=== PATIENT | female | born 1965 | race Caucasian/White ===

== ENCOUNTER 2020-06-03 11:01 | Emergency (ER) | payer OTHER, SELFPAY ==
--- NOTE | ~2020-06-03 | XR_ITS ---
EXAMINATION: XR lumbar spine min 4V DATE: 06/03/2020 12:55 INDICATION: Low back pain TECHNIQUE: Anteroposterior, lateral, and bilateral oblique views of the lumbar spine, and cone-down l ateral view of the lumbosacral junction were obtained. COMPARISON: None. FINDINGS: There is no fracture. There are 2 mm of retrolisthesis of L4 on L5 and L5 on L6. There is m oderate loss of intervertebral disc space height at L4-5 and L5 six and mild loss of intervertebral d isc space height throughout the remainder of the lumbar spine. The vertebral body heights are normal. Small degenerative osteophytes project from the anterior endplates of multiple vertebral bodies. Mil d facet osteoarthritis is noted. The bowel gas pattern is normal. IMPRESSION: 1. Mild to moderate lumbar spondylosis without acute findings. Reviewed, dictated and finalized at location A. HAND
[2020-06-03 11:08] VITALS: BP 127/79; PULSE 79; RESP 16; TEMP 36.5; O2SAT 97
[2020-06-03 11:30] VITALS: BP 118/68; PULSE 72; RESP 16; TEMP 36.6; O2SAT 99
--- NOTE | 2020-06-03 11:40 | PC.NURSE ---
KATELYN White at bedside.
[2020-06-03] MEDS: KETOROLAC 30 MG/ML VIAL (*BKC) IM (12:06)
--- NOTE | 2020-06-03 12:16 | ED.GENADULT ---
HPI - General Adult General Chief complaint: Back Pain/Injury Stated complaint: back pain, numbness to foot Time Seen by Provider: 06/03/20 11:22 Source: patient Mode of arrival: ambulatory Limitations: no limitations History of Present Illness HPI narrative: Patient presents with chief complaint of right-sided back pain that has shot down into her right buttock and ankle that woke her up out of her sleep yesterday morning. Patient denies any direct injury or exertional efforts that she believes could cause her symptoms. Patient denies history of having sciatic issues in the past. Patient was seen at urgent care yesterday and diagnosed with sciatic issues. Patient states she has not had any imaging. Patient was prescribed prednisone, Tylenol 3 and cyclobenzaprine at the urgent care on yesterday. She reports some improvement in mobility but still has pain and was told to come to the emergency department if her symptoms worsen by the urgent care staff yesterday. Patient reports having autoimmune issue. Patient denies any prior back injuries or fractures or chronic medical conditions.. Related Data Home Medications Medication Instructions Recorded Confirmed levothyroxine 75 mcg tablet 75 mcg PO DAILY 04/21/19 04/21/19 adalimumab 40 mg/0.8 mL 40 mg SUB-Q WEEKLY each 08/16/19 subcutaneous pen kit immune glob,gamma(IgG) 10 10 gm IVPB WEEKLY each 08/16/19 [id number] 0 to 50 mcg/mL IV solution leflunomide 20 mg tablet 20 mg PO DAILY 08/16/19 progesterone micronized 100 mg 100 mg PO DAILY cap 08/16/19 capsule cholecalciferol (vitamin D3) 125 mcg PO DAILY 06/03/20 [Vitamin D3] Allergies Allergy/AdvReac Type Severity Reaction Status Date / Time meperidine [From Demerol] Allergy Unknown Unknown Verified 08/16/19 10:41 MEPERIDINE HCL Allergy Mild Unknown Uncoded 04/24/19 15:17 OXYCODONE HCL Allergy Mild Unknown Uncoded 04/24/19 15:17 Review of Systems Review of Systems: Narrative: CONSTITUTIONAL: Denies fever, chills, or sweats. EYES: Denies visual changes, redness, or discharge. ENT: Denies rhinorrhea, congestion, sore throat, or otalgia. CARDIOVASCULAR: Denies chest pain, palpitations, or edema. RESPIRATORY: Denies cough or dyspnea. GASTROINTESTINAL: Denies abdominal pain, nausea, vomiting, or diarrhea. GENITOURINARY: Denies dysuria or hematuria. SKIN: Denies rash or itching. MUSCULOSKELETAL: Reports radiating right low back pain , joint pain, or myalgia. NEUROLOGIC: Denies headache, numbness, dizziness, or weakness. PSYCHIATRIC: Denies anxiety or depression. FOR[facility]LY [facility] Past Medical History Medical History (Updated 06/03/20 @ 13:01 by Bernie White PA-C) Anxiety Asthma Depression Hypertension Hypothyroidism Irritable bowel syndrome Social History Social History Gender identity (if verbalized by the patient): Female Exam Narrative: Exam Narrative: GENERAL: Well-appearing, well-nourished, and in no acute distress. HEAD: Normocephalic, atraumatic. EYES: PERRLA and EOMI. ENT: Nares clear, no rhinorrhea or epistaxis. Mucous membranes moist. Oropharynx without tonsillar hypertrophy exudate or other lesions. Bilateral TMs pearly power nonbulging NECK: Supple. No adenopathy or masses. CHEST: Clear to auscultation. No respiratory distress. No wheezes rales or rhonchi HEART: Regular rate and rhythm. No murmur heard. Normal peripheral pulses. BACK: Patient able to stand and bear weight. Patient minimally tender with palpation of right glutes. No bony step-offs palpated on vertebral spine. No saddle paresthesia. No loss of bowel or bladder function. EXTREMITIES: Normal range of motion. No edema. SKIN: Warm, dry, no rash. NEURO: No focal deficits. Alert and oriented x3. PSYCH: Normal mood and affect. Course Vital Signs Vital signs: Vital Signs Temperature 97.7 F 06/03/20 11:08 Pulse Rate 79 06/03/20 11:08 Respiratory Rate
[2020-06-03 14:00] VITALS: BP 132/78; PULSE 68; RESP 16; O2SAT 100
== END 2020-06-03 14:01 | disposition home or self-care (01) ==
PROVIDERS: Emergency Provider Emergency Medicine; PCP Family Medicine
DX: M54.31 Sciatica, right side (principal); F41.9 Anxiety disorder, unspecified; J45.909 Unspecified asthma, uncomplicated; F32.9 Major depressive disorder, single episode, unspecified; I10 Essential (primary) hypertension; E03.9 Hypothyroidism, unspecified
CPT/HCPCS: 72110; 96372; 99283; J1885

== ENCOUNTER → 2020-06-12 15:47 | Outpatient (CLI) | payer OTHER, SELFPAY ==
--- NOTE | ~2020-06-12 | MR_ITS ---
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 Low back and right leg pain. TECHNIQUE: Multi-sequential, multiplanar MR images of the lumbar spine were obtained without contrast . Sagittal T1, T2, T2 fat saturation images. Axial T2 weighted images. Correlation is made to x-ray from 06/03/2020. FINDINGS: There is moderate loss of the L5-S1 disc height, mild to moderate at L4-5 and mild loss at the 2 levels above. There is 3 mm retrolisthesis L4 on L5. The vertebral bodies are otherwise aligned . The conus medullaris terminates at the L1/2 level and has normal signal intensity and morphology. There are no suspicious marrow signal abnormalities. Paraspinal soft tissue is unremarkable. Level by level evaluation: T12-L1: There is a minimal diffuse disc bulge. Facet arthropathy: Mild. Neural foraminal stenosis: No stenosis. Central canal stenosis: No stenosis. L1-L2: There is a minimal diffuse disc bulge. Facet arthropathy: Mild. Neural foraminal stenosis: No stenosis. Central canal stenosis: No stenosis. L2-L3: There is a moderate diffuse disc bulge. Facet arthropathy: Mild to moderate. Neural foraminal stenosis: Mild bilateral. Central canal stenosis: Mild. L3-L4: There is a moderate diffuse disc bulge. Facet arthropathy: Mild to moderate. Neural foraminal stenosis: Moderate left, mild to moderate right. Central canal stenosis: Mild to moderate. L4-L5: There is a moderate diffuse disc bulge with superimposed moderate-sized right central extrusio n, inferior migration narrowing the right lateral recess posterior to L5. Facet arthropathy: Moderate . Ligamentum flavum enlargement. Neural foraminal stenosis: Severe right, moderate to severe left. Central canal stenosis: Moderate to severe, nerve root crowding with minimal CSF space. L5-S1: There is a moderate diffuse disc bulge. Facet arthropathy: Mild to moderate. Neural foraminal stenosis: Moderate to severe left, moderate right. Central canal stenosis: Mild to moderate. IMPRESSION: L4-5 moderate to severe central canal stenosis, severe right neural foraminal stenosis, a nd sizable right central extrusion that could be affecting the traversing right L5 nerve root in the lateral recess. Reviewed, dictated and finalized at location A. IMPRESSION: L4-5 moderate to severe central canal stenosis, severe right neural foraminal stenosis, and sizable right central extrusion that could be affectin g the traversing right L5 nerve root in the lateral recess.
== END ==
PROVIDERS: PCP Family Medicine; Visit Provider Physician Assistant
DX: M43.06 Spondylolysis, lumbar region (principal); M51.24 Other intervertebral disc displacement, thoracic region
CPT/HCPCS: 72148

== ENCOUNTER 2020-09-09 12:36 | Outpatient (CLI) | payer OTHER, SELFPAY ==
--- NOTE | 2020-09-09 12:59 | ECG_ITS ---
Measurements Intervals [place] Rate: 78 P: 45 HI: 161 QRS: 0 QRSD: 82 T: 16 QT: 344 QTc: 394 Interpretive Statements SINUS RHYTHM NONSPECIFIC T-WAVE ABNORMALITY- ANT/INF LEADS BORDERLINE ECG Electronically Signed On 09-09-2020 13:13:24 CDT by Berhane Winkler D.O.
[2020-09-09 13:10] LABS: Basophils Absolute Auto 0.1 K/mm3 (0.0-0.1); Basophils Percent Auto 1.1 % (0.2-1.2); Eosinophils Absolute Auto 0.3 K/mm3 (0-0.3); Eosinophils Percent Auto 4.8 % (0-4.4); Hematocrit 41.9 % (37.0-47.0); Hemoglobin 13.5 g/dL (12.0-15.0); Immature Granulocyte Absolute 0.03 K/mm3 (0.00-0.031); Immature Granulocyte Percent A 0.5 % (0-0.5); Lymphocytes Absolute Auto 2.21 K/mm3 (0.9-3.2); Lymphocytes Percent Auto 35.6 % (18.3-44.2); Mean Corpuscular HGB Conc 32.2 g/dl (32-36); Mean Corpuscular Hemoglobin 28.8 pg (26-34); Mean Corpuscular Volume 89.3 fl (80-100); Monocytes Absolute Auto 0.7 K/mm3 (0.1-0.6); Monocytes Percent Auto 10.6 % (2.6-8.5); Neutrophils Absolute Auto 2.9 K/mm3 (1.3-6.7); Neutrophils Percent Auto 47.4 % (45.5-73.1); Platelet Count Result 226 k/mm3 (150-375); Red Blood Count 4.69 M/mm3 (4.2-5.4); Red Cell Distribution Width 13.7 % (11.5-14.5); White Blood Count 6.2 K/mm3 (4.5-10.0)
[2020-09-09 13:13] LABS: Add Urine Microscopic? YES; Appearance Urine Clear (Clear); Bilirubin Urine Negative (Negative); Blood Urine Negative (Negative); Color Urine Yellow (Yellow); Glucose Urine UA Negative (Negative); Ketones Urine Negative (Negative); Leukocyte Esterase Ur Trace LEU/UL (NEGATIVE); Mucus Urine Rare /lpf; Nitrate Urine Negative (Negative); Protein Urine Negative (Negative); RBC Urine 0-2 /hpf (0-2); Specific Grav Ur 1.016 (1.001-1.035); Squamous Epithelial Cell Urine Many /hpf (Few); Urobilinogen Urine Negative mg/dL (<2.0); WBC Urine 0-3 /hpf (0-3)
[2020-09-09 13:25] LABS: Anion Gap 4 mmol/L (8-16); Blood Urea Nitrogen 12 mg/dL (7-17); Calcium 9.1 mg/dL (8.4-10.2); Carbon Dioxide 28 mmol/L (22-30); Chloride 108 mmol/L (98-107); Estimated Glomerular Filt Rate > 60; Glucose 102 mg/dL (65-105); Potassium 3.7 mmol/L (3.4-5.0); Sodium 140 mmol/L (137-145)
[2020-09-09 13:30] LABS: INR 0.9
[2020-09-09 13:31] LABS: Partial Thromboplastin Time 25.5 SECONDS (22.3-36.8)
[2020-09-09 14:27] LABS: Vitamin D 25 Hydroxy 49.7 ng/mL
== END 2020-09-09 12:37 | disposition home or self-care (01) ==
PROVIDERS: PCP Family Medicine; Visit Provider Family Medicine
DX: R53.83 Other fatigue (principal); E55.9 Vitamin D deficiency, unspecified; I10 Essential (primary) hypertension; Z01.818 Encounter for other preprocedural examination
CPT/HCPCS: 36415; 80048; 81001; 82306; 85025; 85610; 85730; 93005

== ENCOUNTER 2023-08-07 15:56 | Emergency (ER) | payer OTHER, SELFPAY ==
--- NOTE | ~2023-08-07 | CT_ITS ---
EXAMINATION: CT brain wo con DATE: 08/07/2023 17:49 INDICATION: trauma . TECHNIQUE: Computed tomography (CT) of the head was performed without intravenous contrast. The mA wa s adjusted according to patient size. Iterative reconstruction technique was employed. The dose-lengt h product was 605.33 mGy-cm. COMPARISON: 05/18/2006. FINDINGS: No acute intracranial hemorrhage or extra-axial fluid collection. No hydrocephalus, mass, or herniation. No acute ischemic infarct. Unremarkable dural venous sinus attenuation. No acute osseous abnormality. The aerated spaces are clear. Bilateral basal ganglia calcification. IMPRESSION: No acute intracranial process. Reviewed, dictated and finalized at location K.
[2023-08-07 16:05] VITALS: BP 111/72; PULSE 67; RESP 18; TEMP 36.9; O2SAT 99
--- NOTE | 2023-08-07 18:07 | ED.GENADULT ---
HPI - General Adult General Chief complaint: Fall Stated complaint: from urgent care- fell down 15 stairs Time Seen by Provider: 08/07/23 17:29 History of Present Illness HPI narrative: Patient is a 58-year-old female who presents ER for evaluation after falling down 15 stairs. She did strike her head. She reports she has a massive headache. She has a little bit of wearing to her vision. After falling down the stairs she went to urgent care and then urgent care wanted her to come here so she went to work. Patient did not want to leave against medical advice. She does report that her has picked up her medications that were prescribed to her. She has mild nausea. She has had a concussion before and feels like she has the same thing. Related Data Home Medications Medication Instructions Recorded Confirmed immune glob,gamma(IgG) 10 10 gm IV WEEKLY 08/16/19 07/26/23 [id number] 0 to 50 mcg/mL IV solution cholecalciferol (vitamin D3) 125 125 mcg PO DAILY 06/03/20 07/26/23 mcg (5,000 unit) tablet (Vitamin D3) Allergies Allergy/AdvReac Type Severity Reaction Status Date / Time meperidine Allergy Unknown Itching Verified 03/06/23 16:23 MEPERIDINE HCL Allergy Mild Unknown Uncoded 03/06/23 16:23 OXYCODONE HCL Allergy Mild Unknown Uncoded 03/06/23 16:23 Review of Systems Review of Systems: All systems reviewed & are unremarkable except as noted in HPI and below Constitutional: Constitutional: Reports no additional constitutional complaints Eyes: Eyes: Reports no additional eye complaints ENT: Reports system reviewed and no additional complaints, except as documented Cardiovascular: Cardiovascular: Reports no additional cardiovascular complaints Respiratory: Respiratory: Reports no additional respiratory complaints Neurologic: Denies syncope, Reports headache(s), Denies focal weakness and Denies numbness PMF Past Medical History Medical History Anxiety Asthma Depression Disorder of intervertebral disc of lumbar spine Hypertension Hypothyroidism Irritable bowel syndrome Spinal stenosis Surgical History Surgical History H/O lumpectomy History of back surgery Family History Family History Father Hypertension Mother Hypertension Other Diabetes mellitus Family history of arthritis Social History Social History Smoking status: Never smoker Second hand tobacco smoke exposure: No Alcohol intake: never Substance use: never Substance use type: does not use Lack of Transportation: No Lack of Food: Never True Current Housing: I Have Housing Concerned About Future Housing: No Difficulty Paying Gas/Electric Bills: No Difficulty Paying for Meds: No Currently Unemployed: No Education: Bachelor's Degree Difficulty w/ Childcare or Family Care: No Living arrangements: with family Gender identity (if verbalized by the patient): Female Sexual Orientation (if Verbalized by the Patient): Straight or Heterosexual Spiritual care concerns: No Agree to blood products: Yes Exam Narrative: GENERAL: Well-appearing, well-nourished, and in no acute distress. HEAD: Normocephalic, atraumatic. EYES: PERRLA and EOMI. ENT: Mucous membranes moist. CHEST: Clear to auscultation. No respiratory distress. HEART: Regular rate and rhythm. Normal peripheral pulses. EXTREMITIES: Normal range of motion. No edema. NEURO: Alert and oriented x3. PSYCH: Normal mood and affect. Course Course Emergency Course: No intracranial injury. Patient with symptoms of concussion. Discharge home. Vital Signs Vital signs: Vital Signs Temperature 98.5 F 08/07/23 16:05 Pulse Rate 67 08/07/23 16:05 Resp
== END 2023-08-07 18:16 | disposition home or self-care (01) ==
PROVIDERS: Emergency Provider Emergency Medicine; PCP Family Medicine
DX: S06.0X0A Concussion without loss of consciousness, initial encounter (principal); J45.909 Unspecified asthma, uncomplicated; I10 Essential (primary) hypertension; E03.9 Hypothyroidism, unspecified; K58.9 Irritable bowel syndrome, unspecified; W10.9XXA Fall (on) (from) unspecified stairs and steps, initial encounter
CPT/HCPCS: 70450; 99284

== ENCOUNTER 2023-10-19 10:45 | Outpatient (CLI) | payer OTHER, SELFPAY ==
--- NOTE | ~2023-10-19 | US_ITS ---
EXAMINATION: US right upper quadrant DATE: 10/19/2023 11:09 INDICATION: Right lower quadrant pain TECHNIQUE: Multiple grayscale and Doppler ultrasound images of the right upper quadrant were obtained . COMPARISON: Ultrasound abdomen 05/05/2007. FINDINGS: The visualized portions of the pancreas are normal. The liver is normal with normal echogen icity and echotexture. No surface nodularity. Normal hepatopetal flow in the main portal vein. Mobile , echogenic gallbladder foci with shadowing. No wall thickening or pericholecystic fluid The common b ile duct measures 4 mm. There was no sonographic Hassan sign. IMPRESSION: Cholelithiasis. Otherwise normal right upper quadrant ultrasound findings. Reviewed, dictated and finalized at location K.
== END 2023-10-19 10:46 ==
LOC: MICIMG 10:46
PROVIDERS: PCP Family Medicine
DX: R10.31 Right lower quadrant pain (principal); K80.20 Calculus of gallbladder without cholecystitis without obstruction
CPT/HCPCS: 76705

== ENCOUNTER 2024-01-02 14:56 | Emergency (ER) | payer OTHER, SELFPAY ==
[2024-01-02 15:05] VITALS: BP 126/81; PULSE 71; RESP 16; TEMP 36.6; O2SAT 97
--- NOTE | 2024-01-02 15:18 | ED.URI ---
HPI - URI/Sore Throat General Chief Complaint: Upper Respiratory Infection Stated Complaint: cough,chest congestion Time Seen by Provider: 01/02/24 15:18 Source: patient, RN notes reviewed and old records reviewed Mode of arrival: ambulatory Limitations: no limitations History of Present Illness HPI Narrative: 58 year old female who presents to [facility] care with complaints of sinus congestion and drainage and harsh barky cough for the past week. patient reports that for the past 2 days she has lost hr voice, denies any known fevers, chills or sweats. 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 Patient does have a immune disorder and she takes weekly immunoglobulin treatment. Patient has inhalers and rescue inhaler which she has used without resolution.Patient reports that she has noted some wheezing when she lays supine. Patient concerned due to illness she has been helping care for her mother who has pancreatic cancer. Patient reports no known fever. MD elicited complaint: cough and other (loss of voice ) Pertinent past history: immunosuppression Onset (ago): week(s) (1) Consistency: constant Pain scale (0-10): 3 Able to tolerate fluids by mouth: Yes Treatments prior to arrival: other (inhalers) Related Data Home Medications Medication Instructions Recorded Confirmed immune glob,gamma(IgG) 10 10 gm IV WEEKLY 08/16/19 07/26/23 [id number] 0 to 50 mcg/mL IV solution cholecalciferol (vitamin D3) 125 125 mcg PO DAILY 06/03/20 07/26/23 mcg (5,000 unit) tablet (Vitamin D3) Allergies Allergy/AdvReac Type Severity Reaction Status Date / Time meperidine Allergy Unknown Itching Verified 01/02/24 15:09 MEPERIDINE HCL Allergy Mild Unknown Uncoded 01/02/24 15:09 OXYCODONE HCL Allergy Mild Unknown Uncoded 01/02/24 15:09 Review of Systems Review of Systems: CONSTITUTIONAL: Denies malaise, chills, sweats, or fever. EYES: Denies visual changes, redness, or discharge. ENT: Reports rhinorrhea, congestion,no sinus pain, no otalgia and no sore throat. CARDIOVASCULAR: Denies chest pain, palpitations, or edema. RESPIRATORY: Reports harsh barky cough.? Denies any acute dyspnea GASTROINTESTINAL: Denies abdominal pain, nausea, vomiting, diarrhea SKIN: Denies rash or itching. MUSCULOSKELETAL: Denies myalgia. NEUROLOGIC: Denies headache. All systems reviewed & are unremarkable except as noted in HPI and below PMFSH Past Medical History Medical History Anxiety Asthma Depression Disorder of intervertebral disc of lumbar spine Hypertension Hypothyroidism Immunodeficiency Irritable bowel syndrome Spinal stenosis Surgical History Surgical History H/O lumpectomy History of back surgery Family History Family History Father Hypertension Mother Hypertension Other Diabetes mellitus Family history of arthritis Social History Social History Smoking status: Never smoker Second hand tobacco smoke exposure: No Alcohol intake: never Substance use: never Substance use type: does not use Lack of Transportation: No Lack of Food: Never True Current Housing: I Have Housing Concerned About Future Housing: No Difficulty Paying Gas/Electric Bills: No Difficulty Paying for Meds: No Currently Unemployed: No Education: Bachelor's Degree Difficulty w/ Childcare or Family Care: No Living arrangements: with family Gender identity (if verbalized by the patient): Female Sexual Orientation (if Verbalized by the Patient): Straight or Heterosexual Spiritual care concerns: No Agree to blood products: Yes Comments At time of signature, agree with nursing past medical, surgical, social and family history. There is no re
== END 2024-01-02 15:43 | disposition home or self-care (01) ==
PROVIDERS: Emergency Provider Registered Nurse; PCP Family Medicine
DX: J40 Bronchitis, not specified as acute or chronic (principal); I10 Essential (primary) hypertension; E03.9 Hypothyroidism, unspecified; M48.00 Spinal stenosis, site unspecified; D84.9 Immunodeficiency, unspecified; J45.909 Unspecified asthma, uncomplicated
CPT/HCPCS: 99213; G0463

== ENCOUNTER 2024-02-12 16:03 | Emergency (ER) | payer OTHER, SELFPAY ==
--- NOTE | ~2024-02-12 | XR_ITS ---
EXAMINATION: XR chest 2V DATE: 02/12/2024 16:38 INDICATION: Cough. Bilateral rib pain. TECHNIQUE: Frontal and lateral views of the chest were obtained. COMPARISON: Chest 2 views 05/05/2015 FINDINGS: There is mild scarring at right lung apex. No pleural effusion or pneumothorax. The heart s ize is normal. There are surgical clips in right breast. IMPRESSION: 1. Stable mild scarring at right lung apex. Reviewed, dictated and finalized at location A. [employer]
[2024-02-12 16:08] VITALS: BP 115/77; PULSE 62; RESP 16; TEMP 36.5; O2SAT 100
--- NOTE | 2024-02-12 16:14 | ED.EAR ---
HPI - Ear Problem General Chief complaint: Ear Stated complaint: Ear Pain Time Seen by Provider: 02/12/24 16:17 Source: patient Mode of arrival: ambulatory Limitations: no limitations History of Present Illness HPI Narrative: Kenyatta is a 58-year-old female patient presenting to the clinic today with complaints of sinus congestion, hoarseness in her voice, left ear pain, and productive cough x5 days. She reports the cough is the worst and she is having some pain to the bilateral anterior lateral ribs from the cough. Denies any chest pain or shortness of breath. Denies any fever, chills, or body aches otherwise. Related Data Home Medications Medication Instructions Recorded Confirmed immune glob,gamma(IgG) 10 10 gm IV WEEKLY 08/16/19 02/12/24 [id number] 0 to 50 mcg/mL IV solution cholecalciferol (vitamin D3) 125 125 mcg PO DAILY 06/03/20 02/12/24 mcg (5,000 unit) tablet (Vitamin D3) Allergies Allergy/AdvReac Type Severity Reaction Status Date / Time meperidine Allergy Unknown Itching Verified 02/12/24 16:13 MEPERIDINE HCL Allergy Mild Unknown Uncoded 02/12/24 16:13 OXYCODONE HCL Allergy Mild Unknown Uncoded 02/12/24 16:13 Review of Systems Review of Systems: Pertinent positives per HPI. Patient denies any fever, chills, rash, headache, visual changes, dizziness, sore throat, shortness of breath, chest pain, palpitations, nausea, vomiting, diarrhea, constipation, abdominal pain, or any urinary issues. [facility] Past Medical History Medical History Anxiety Asthma Depression Disorder of intervertebral disc of lumbar spine Hypertension Hypothyroidism Immunodeficiency Irritable bowel syndrome Spinal stenosis Surgical History Surgical History H/O lumpectomy History of back surgery Family History Family History Father Hypertension Mother Hypertension Other Diabetes mellitus Family history of arthritis Social History Social History Smoking status: Never smoker Second hand tobacco smoke exposure: No Alcohol intake: never Substance use: never Substance use type: does not use Lack of Transportation: No Lack of Food: Never True Current Housing: I Have Housing Concerned About Future Housing: No Difficulty Paying Gas/Electric Bills: No Difficulty Paying for Meds: No Currently Unemployed: No Education: Bachelor's Degree Difficulty w/ Childcare or Family Care: No Living arrangements: with family Gender identity (if verbalized by the patient): Female Sexual Orientation (if Verbalized by the Patient): Straight or Heterosexual Spiritual care concerns: No Agree to blood products: Yes Comments At the time of my signature, I reviewed and agree with the nursing past medical, surgical, social, and family history. There is no relevant family history pertinent to the patient complaint. Exam Narrative: General: Well-developed, well nourished, in no apparent distress Head: Normocephalic, atraumatic Eyes: Pupils equally round and reactive to light bilaterally, EOM intact, sclera and conjunctive clear, no discharge, lids normal Ears: TMs intact and clear, ear canals clear, no drainage, grossly hearing normal. Nose: Nares patent, clear nasal discharge, mild inflammation, no sinus tenderness. Mouth: Oropharynx without lesions or masses, good dentition, MMM. Neck: Supple, trachea midline, no enlargement of anterior or posterior cervical nodes, no thyroid masses or goiter palpable. Cardio: Regular rate and rhythm, s1 and s2 normal, no murmur appreciated. Resp: Diminished lung sounds in the bases, no rhonchi, rales, wheezing or rubs Course Course Emergency Course: Portions of this record may have been created with voice recognition software. Level of Care: Express Care Visit Vital Signs Vital signs: Vital Signs Temperature 36.5 C 02/12/24 16:08 Pulse Rate 62 02/12/24 16:08 Respiratory Rate 16 02/12/24 16:08 Blood Pressure 115/77 02/12/24 16:08 Pulse Oximetry 100 02/12/24 16:08 Oxygen Delivery Room Air 02/12/24 16:08 Temperature 36.5 C 02/12/24 16:08 Pulse Rate 62 02/12/24 16:08 Respiratory Rate 16 02/12/24 16:08 Blood Pressure 115/77 02/12/24 16:08 Pulse Oximetry 100 02/12/24 16:08 Oxygen Delivery Room Air 02/12/24 16:08 Vital signs reviewed Medical Decision Making MDM Narrative Medical decision making narrative: At the time of visit patient is resting comfortably on the exam table. Patient appears to be nontoxic. Diagnostics: Chest x-ray was negative for any sign of acute cardiopulmonary process Plan: Patient has history of primary immunodeficiency disease. I suspect patient has bronchitis. Will place on albuterol inhaler, azithromycin, and Tessalon Perles. Supportive measures were discussed with the patient and they voiced understanding discharge instructions and agrees to treatment plan. Return precautions reviewed Differential Diagnosis Differential Diagnosis: Bronchitis, pneumonia, URI, COVID, influenza, strep, viral syndrome, otitis media, otitis externa, eustachian tube dysfunction, cerumen impaction Vital Signs Vital Signs: Vital Signs Temperature 36.5 C 02/12/24 16:08 Pulse Rate 62 02/12/24 16:08 Respiratory Rate 16 02/12/24 16:08 Blood Pressure 115/77 02/12/24 16:08 Pulse Oximetry 100 02/12/24 16:08 Oxygen Delivery Room Air 02/12/24 16:08 Temperature 36.5 C 02/12/24 16:08 Pulse Rate 62 02/12/24 16:08 Respiratory Rate 16 02/12/24 16:08 Blood Pressure 115/77 02/12/24 16:08 Pulse Oximetry 100 02/12/24 16:08 Oxygen Delivery Room Air 02/12/24 16:08 Discharge Plan Discharge Clinical Impression: Bronchitis URI (upper respiratory infection) Qualifiers: URI type: unspecified viral URI Qualified Code(s): J06.9 - Acute upper respiratory infection, unspecified Patient Disposition: Home, Self-Care Condition: Stable Instructions: Antibiotic Form Additional Instructions: Take prescription medications only as prescribed-Tessalon Perles, azithromycin, and albuterol inhaler Increase fluids and stay well hydrated Tylenol/motrin for pain/fever Flonase and OTC antihistamines as directed Vicks vapor rub to open sinuses Sinus rinses for congestion Cepacol spray, cough drops, throat lozenges, warm tea with honey/lemon, gargle salt water to soothe throat BRAT diet for diarrhea Clear liquids x 24 hours then advance as tolerated for nausea/vomiting Go to the ED if you develop a worsening in your condition- high fever not controlled by Tylenol or Motrin, dehydration, weakness, lethargy, shortness of breath, or chest pain. Follow up with your PCP in 3-5 days if symptoms persist. Prescriptions: New azithromycin 250 mg tablet See Rx Instructions .ROUTE .COMPLEX Qty: 6 0RF Rx Instructions: For 250 mg dose pack: take 500 mg today (day 1), then 250 mg for 4 days (days 2-5) benzonatate 200 mg capsule 200 mg PO TID 7 Days Qty: 21 0RF albuterol sulfate 90 mcg/actuation HFA aerosol inhaler 2 puff inhalation Q4-6H PRN (Reason: shortness of breath or wheezing) 30 Days Qty: 8.5 0RF No Action immun glob [id number]-kcd-[id number]-IgA 0-50 10 gram recon soln 10 gm IVPB WEEKLY cholecalciferol (vitamin D3) [Vitamin D3] 125 mcg (5,000 unit) Tablet 125 mcg PO DAILY hydrocortisone 2.5 % cream 1 applic topical BID PRN (Reason: rash) Qty: 28.35 0RF duloxetine 60 mg capsule,delayed release(DR/EC) 60 mg PO BID Qty: 180 3RF pantoprazole [Protonix] 40 mg tablet,delayed release (DR/EC) 40 mg PO QAM Qty: 90 3RF lamotrigine 100 mg tablet 100 mg PO DAILY Qty: 90 1RF gabapentin 300 mg capsule 900 mg PO QAM Qty: 270 1RF alprazolam [Xanax] 0.5 mg tablet 0.5 mg PO TID PRN (Reason: anxiety) Qty: 270 0RF fluticasone propion-salmeterol [Advair Diskus] 250-50 mcg/dose blister with device 1 inh INHALATION BID Qty: 3 1RF metoprolol succinate 50 mg tablet extended release 24 hr 50 mg PO BID Qty: 180 3RF Follow-up/Referrals: Daphnie Cristina MD [Primary Care Provider] - Quality NIHSS Nursing Documentation ED NIHSS nursing documentation: reviewed/agree
== END 2024-02-12 16:53 | disposition home or self-care (01) ==
PROVIDERS: Emergency Provider Nurse Practitioner Family; PCP Family Medicine
DX: J40 Bronchitis, not specified as acute or chronic (principal); J06.9 Acute upper respiratory infection, unspecified; J45.909 Unspecified asthma, uncomplicated; I10 Essential (primary) hypertension; E03.9 Hypothyroidism, unspecified; D84.9 Immunodeficiency, unspecified; M48.00 Spinal stenosis, site unspecified
CPT/HCPCS: 71046; 99213; G0463

== ENCOUNTER 2024-06-09 13:47 | Emergency (ER) | payer OTHER, SELFPAY ==
--- NOTE | 2024-06-09 13:50 | ED.SKABFB ---
HPI - Skin/Abscess/Foreign Bdy General Chief complaint: Skin/Abscess/Foreign Body Stated complaint: Itching Time Seen by Provider: 06/09/24 13:50 Source: patient Mode of arrival: ambulatory Limitations: no limitations History of Present Illness HPI narrative: Patient is a 59-year-old female who presents with itching all over body. Denies any rash. Patient has history of idiopathic itching and has been seen by specialist at [facility]. Patient was given gabapentin my specialist. Patient has been taking Benadryl with no relief. Denies any shortness of breath, lip or mouth swelling or chest pain. Patient states she has not had steroids in years. Patient states she was given them 04/28/24 but did not take them. States they normally give her an injection. Related Data Home Medications ?Medication ?Instructions ?Recorded ?Confirmed ?Last Taken ?Type immune glob,gamma(IgG) 10 10 gm IV WEEKLY 08/16/19 02/12/24 Unknown History ljob-gnf-rjgs-IgA 0 to 50 mcg/mL IV solution cholecalciferol (vitamin D3) 125 125 mcg PO DAILY 06/03/20 02/12/24 Unknown History mcg (5,000 unit) tablet (Vitamin D3) Allergies Allergy/AdvReac Type Severity Reaction Status Date / Time oxycodone Allergy Intermediate Hives Verified 06/09/24 14:02 meperidine Allergy Unknown Itching Verified 06/09/24 14:02 Review of Systems Review of Systems: All systems reviewed & are unremarkable except as noted in HPI and below Constitutional: Constitutional: Denies body ache(s), Denies chills, Denies fatigue, Denies fever(s), Denies headache(s), Denies malaise and Denies weakness Eyes: Eyes: Denies blurry vision, Denies irritation and Denies loss of vision ENT: Denies otalgia, Denies headache(s), Denies nasal discharge, Denies sinus pain and Denies sore throat Cardiovascular: Cardiovascular: Denies chest pain, Denies irregular heart rhythm and Denies dyspnea Respiratory: Respiratory: Denies dyspnea Gastrointestinal: Gastrointestinal: Denies abdominal pain, Denies melena, Denies hematochezia, Denies diarrhea, Denies nausea and Denies vomiting Musculoskeletal: Musculoskeletal: Denies back pain, Denies myalgias and Denies arthralgias Integumentary/Breasts: Skin/Breast: Reports pruritus and Denies rash Neurologic: Denies headache(s), Denies loss of vision and Denies weakness Psychiatric: Psychiatric: Reports no additional psychiatric complaints Endocrine: Endocrine: Denies fatigue PMFSH Past Medical History Medical History Primary immune deficiency disorder Immunodeficiency Spinal stenosis Disorder of intervertebral disc of lumbar spine Hypothyroidism Asthma Irritable bowel syndrome Depression Anxiety Hypertension Surgical History Surgical History History of back surgery H/O lumpectomy Family History Family History Father Hypertension Mother Hypertension Other Diabetes mellitus Family history of arthritis Social History Social History Smoking status: Never smoker Second hand tobacco smoke exposure: No Alcohol intake: never Substance use: never Substance use type: does not use Lack of Transportation: No Lack of Food: Never True Current Housing: I Have Housing Concerned About Future Housing: No Difficulty Paying Gas/Electric Bills: No Difficulty Paying for Meds: No Currently Unemployed: No Education: Bachelor's Degree Difficulty w/ Childcare or Family Care: No Living arrangements: with family Gender identity (if verbalized by the patient): Female Sexual Orientation (if Verbalized by the Patient): Straight or Heterosexual Spiritual care concerns: No Agree to blood products: Yes Comments At time of signature, agree with nursing past medical, surgical, social and family history. There is no relevant family history pertinent to the presenting complaint. Exam Const: General: cooperative, healthy appearing, comfortable, no acute distress and well nourished Nutritional Appearance: well nourished Orientation/consciousness: patient oriented x3 Limitations: no limitations HENMT: Head: normal to inspection, normocephalic and atraumatic Ears: hearing grossly normal bilaterally and external ears normal Face/Nose/Sinus: Normal external nose present, normal facial exam and face symmetric Face and sinus: normal facial exam and face symmetric Mouth: Yes lip normal Eyes: General: appearance normal, both eyes and all related structures Alignment and Position: alignment normal and position normal Periorbital: periorbital findings normal Eyelids: eyelids normal Pupils: Equal, round and reactive pupils present EOM: EOMs intact bilaterally Neck: Neck: normal visual inspection, full ROM and supple Chest: Chest palpation & inspection: normal inspection of the chest Resp: Effort & Inspection: normal respiratory effort and able to speak in complete sentences Auscultation: clear to auscultation bilaterally Cardio: Rate: regular rate Rhythm: regular rhythm Heart sounds: S1 normal heart sound present and S2 normal heart sound present GI: Inspection: normal to inspection Skin: General skin exam: normal color and no rashes or lesions noted Neuro: General: patient oriented x3 and moves all extremities Cranial nerves: Yes Equal, round and reactive pupils present Speech: normal speech Gait exam (Neuro): Normal gait present Extrem: General: normal to inspection, full ROM and no edema Psych: Appearance: grossly normal and well kempt Mental Status: mental status grossly normal Speech and movement: Normal speech and movement present Affect: normal affect Attitude: cooperative Thought process: Normal thought process present Course Course Emergency Course: Patient is aware of diagnosis, understands and agrees to treatment plan. Anticipatory guidance given. Patient agrees to follow-up as directed and is aware of reasons to seek care at the emergency department. Portions of this record may have been created with voice recognition software Level of Care: Express Care Visit Vital Signs Vital signs: Reviewed MDM - Skin/Abscess/Foreign Bdy MDM Narrative Medical decision making narrative: There is no rash seen on patient. Discussed patient's history and depth. Reports she has not had an episode like this in 6 years. Also reports she used to be on prednisone daily and had adrenal gland insufficiency due to the. Patient states oral steroids cause her to retain fluid. Discussed that tapering steroids is more appropriate for the symptoms due to a 1 time injection wearing off quicker and causing symptoms to return. Also educated on the importance of taking allergy medicine daily instead of every other day or so. Pt well hydrated appearing, in no respiratory distress, hemodynamically stable. Recommend supportive care. The patient is stable at time of discharge the clinical impression was discussed and the patient was given the opportunity to ask questions, which were addressed as completely as possible given the information available at present. Anticipatory guidance and return to care precautions were discussed and the importance of primary care follow-up was stressed and encouraged. The patient voiced understanding of the plan, indications to return, and the need for follow-up. Exam findings show no acute concerns or changes Patient is appropriate for outpatient treatment and follow-up. Differential Diagnosis Differential diagnosis: Likely urticaria, allergic reaction to drug, eczema, insect bites, contact dermatitis and other (Idiopathic itching) Medical Records Attestation: I reviewed the patient's medical records. Discharge Plan Discharge Clinical Impression: Itching Patient Disposition: Home, Self-Care Condition: Stable Instructions: Itchy Skin (ED) Additional Instructions: The most important part of your care is follow up with Primary care provider. Take Benadryl 25-50 mg every 6 hours for itching Take Claritin, Zyrtec, or Tiffany daily for the next 7 days Take the steroids starting in the morning. Avoid hot showers, Take cool showers. Wash the area with gentle soap and water only. Avoid scratching when possible to prevent worsening of the condition and disruption of the skin that could lead to bacterial infection To relieve itching, place a cool washcloth or some ice over the area that itches, rather than scratching Follow up with primary care provider or seek ER if you have trouble breathing, become hoarse, or start wheezing, develop belly cramps, vomiting or feel dizzy. Patient Language: Yakut Prescriptions: New prednisone 10 mg tablet See Rx Instructions .ROUTE .COMPLEX Qty: 18 0RF Rx Instructions: 30 mg daily for 3 days, 20 mg daily for 3 days, 10 mg daily for 3 days No Action albuterol sulfate 90 mcg/actuation HFA aerosol inhaler 2 puff inhalation Q4-6H PRN (Reason: shortness of breath or wheezing) 30 Days Qty: 8.5 0RF azithromycin 250 mg tablet See Rx Instructions .ROUTE .COMPLEX Qty: 6 0RF Rx Instructions: For 250 mg dose pack: take 500 mg today (day 1), then 250 mg for 4 days (days 2-5) prednisone 20 mg tablet 40 mg PO DAILY 5 Days Qty: 10 0RF albuterol sulfate 90 mcg/actuation HFA aerosol inhaler 2 puff inhalation Q4-6H PRN (Reason: shortness of breath or wheezing) 30 Days Qty: 8.5 0RF immun glob [id number]-yzlm-IgA 0-50 10 gram recon soln 10 gm IVPB WEEKLY cholecalciferol (vitamin D3) [Vitamin D3] 125 mcg (5,000 unit) Tablet 125 mcg PO DAILY hydrocortisone 2.5 % cream 1 applic topical BID PRN (Reason: rash) Qty: 28.35 0RF pantoprazole [Protonix] 40 mg tablet,delayed release (DR/EC) 40 mg PO QAM Qty: 90 3RF fluticasone propion-salmeterol [Advair Diskus] 250-50 mcg/dose blister with device 1 inh INHALATION BID Qty: 3 1RF metoprolol succinate 50 mg tablet extended release 24 hr 50 mg PO BID Qty: 180 3RF alprazolam [Xanax] 0.5 mg tablet 0.5 mg PO TID PRN (Reason: anxiety) Qty: 270 0RF lamotrigine 100 mg tablet 100 mg PO DAILY Qty: 90 1RF gabapentin 300 mg capsule 900 mg PO QAM Qty: 270 1RF duloxetine 60 mg capsule,delayed release(DR/EC) 60 mg PO BID Qty: 180 3RF Follow-up/Referrals: Blayne Christian MD [Physician] - 3 Days Time of Disposition: 14:17
[2024-06-09 13:56] VITALS: BP 133/90; PULSE 66; RESP 16; TEMP 36.8; O2SAT 98
== END 2024-06-09 14:28 | disposition home or self-care (01) ==
PROVIDERS: Emergency Provider Nurse Practitioner Family
DX: L29.9 Pruritus, unspecified (principal); M48.00 Spinal stenosis, site unspecified; I10 Essential (primary) hypertension; E03.9 Hypothyroidism, unspecified; D84.9 Immunodeficiency, unspecified; J45.909 Unspecified asthma, uncomplicated; F41.9 Anxiety disorder, unspecified
CPT/HCPCS: 99213; G0463

== ENCOUNTER 2024-09-09 12:19 | Outpatient (CLI) | payer OTHER, SELFPAY ==
--- NOTE | ~2024-09-09 | DEXA_ITS ---
Bone Density Report Name: JORGE SANZ Age: 59 Sex: Female Ethnicity: White Date of : 1965 Indication: postmenopausal; screening for osteoporosis; prior fracture; cancer; asthma or emphysema; secondary osteoporosis; Referring Provider: Daphnie Cristina Study: Bone densitometry was performed. Exam Date: September 09, 2024 Accession number: [id number] Bone Density: Region BMD T-score Z-score Classification AP Spine(L1-L4) 1.089 0.4 1.7 Normal Femoral Neck (Left) 0.677 -1.6 -0.3 Osteopenia Total Hip (Left) 0.912 -0.2 0.7 Normal Femoral Neck (Right) 0.660 -1.7 -0.5 Osteopenia Total Hip (Right) 0.933 -0.1 0.8 Normal Femoral Neck Mean 0.668 -1.6 -0.4 Osteopenia Total Hip Mean 0.922 -0.2 0.7 Normal World Health Organization criteria for BMD impression classify patients as: Normal (T-score at or above -1.0), Osteopenia (T-score between -1.0 and -2.5), or Osteoporosis (T-score at or below -2.5). 10-year Fracture Risk(1): Major Osteoporotic Fracture 15% Hip Fracture 2.6% Reported Risk Factors: [place] (), Neck BMD=0.660, BMI=26.7, previous fracture, smoking, secondary osteoporosis (1) FRAX(R) Version 3.08. Fracture probability calculated for an untreated patient. Fracture probability may be lower if the patient has received treatment. Clinical Information Provided by Patient: Has had a low trauma fracture Smokes Has secondary osteoporosis Has used the following medications: Vitamin D Has the following medical conditions: Asthma or Emphysema, Cancer Patient maximum height was 57 Menopause Age: 48 No regular weight bearing exercise Does not regularly consume dairy products Drinks caffeinated beverages Onset of menses at age 13 Number of children 1 Impression: The patient has low bone mass, based on the Right Femoral Neck T-score. The patient has risk factors, including: smoking, previous fracture. Discussion: BONE DENSITY IS LOW AT ONE OR MORE SKELETAL SITES. This patient's lowest T-score is low at one or more skeletal sites. It meets the World Health Organization's (WHO) criteria for ?low bone mass? (T-score between -1.0 and -2.5). The patient's 10-year risk of fracture as calculated by FRAX is less than the threshold where pharmacological therapy is recommended by the National Osteoporosis Foundation (NOF). However, all treatment decisions require clinical judgment and consideration of individual patient factors, including patient preferences, comorbidities, previous drug use, risk factors not captured in the FRAX model (e.g., frailty, falls, vitamin D deficiency, increased bone turnover, interval significant decline in bone density) and possible under or overestimation of fracture risk by FRAX. The patient should follow a healthful lifestyle (good nutrition with adequate calcium and vitamin D, and appropriate weight-bearing exercise). Follow-Up: Consider repeating this study in 2 to 3 years to reassess this patient's status, or sooner if there is some new clinical indication. Reported by: EM on 09/09/2024 12:40:00 PM. Reviewed, dictated and finalized at location A.
--- OUTSIDE RECORDS SUMMARY | 2024-09-09 13:14 | XMS_ITS | CONTINUITY OF CARE DOCUMENT ---
Author Name gill garland Address Unknown Organization [facility] Address [address] [place] [address] Phone [phone] Care Team Providers Care Asp Net C Developer Name Role Phone See ARAUZ, Nik Unavailable ELIJAH CRISOSTOMO MD Unavailable [phone] ELIJAH CRISOSTOMO MD Unavailable [phone] INS[employer]ANCE [employer] Payer name Policy type / Coverage type Raymundo red libertarian ID [facility] [id number] Other [id number]
--- OUTSIDE RECORDS SUMMARY | 2024-09-09 13:14 | XMS_ITS | Clinical Summary ---
Author Organization [facility] Address [address] [place] [address] Care Team Providers Care External Relations Director Name Role Phone Daphnie Cristina MD Primary Care Provider [phone] Source Comments [facility],non-owned Affiliates and Associated Physician Practices is amultiple site organization consisting of ambulatory clinics and hospital sitesin [place], [place], [place] and [place]. This disclosure is being madepursuant to the Care Everywhere program and may not contain all information available regarding this patient. Last updated 17.[facility] Allergies Active Allergy Reactions Criticality Noted Date Comments Meperidine Vomiting High 12/18/2017 Oxycodone-Acetaminophen Itching High 12/18/2017 Medications * Be aware that medications may not be up to date on this document. Alwaysverify current medications with the patient. lamoTRIgine (LAMICTAL) 100 MG tablet Take 100 mg by mouth once daily Active metoprolol succinate XL 24hr (TOPROL XL) 50 MG tablet Take 1 tablet by mouth once daily 01/01/2020 Active Cholecalciferol 50 MCG (1999) 1xdaily Active pantoprazole EC (PROTONIX) 40 MG tablet Take 40 mg by mouth Active leflunomide (ARAVA) 20 MG tablet Take 1 tablet by mouth once daily 02/09/2020 Active olopatadine (PATADAY) 0.2 % ophthalmic solution Instill 1 (one) drop into both eyes once daily 2.5 mL 12/24/2020 Active Active Problems Problem Noted Date Diagnosed Date CVID (common variable immunodeficiency) 12/20/19 18 Intermittent asthma 12/14/2017 Psoriatic arthritis 03/10/2017 Osteoarthritis of knee 07/20/2015 Arthritis 03/31/2015 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 Fatigue 04/11/2014 S/P ablation of accessory bypass tract 1 Sustained SVT 09/16/2010 Angina pectoris 03/18/2010 HTN (hypertension), benign 03/18/2010 Hyperlipidemia 03/18/2010 S/P partial thyroidectomy 03/18/2010 Nontoxic single thyroid nodule 10/28/2008 Ptosis of both eyelids Encounters Date Type Department Care Team Description 07/08/2024 Lab Requisition [facility] - DermPath Lab [address] [place] [address] Emily Sanchez MD from Last 3 Months Immunizations Immunization Administration Dates Next Due INFLUENZA VACCINE, QUADR. (F LUZONE; FLULAVAL; FLUARIX; AFLURIA QUADRIVALENT; 6MO+), 0.5 ML (IIV4) 12/18/2017 Social History Tobacco Use Types Packs/Day Years Used Date Smoking Tobacco: Never Smokeless Tobacco: Never Alcohol Use Standard Drinks/Week Comments Never 0 (1 standard drink = 0.6 oz pur e alcohol) Comments Unknown Sex and Gender Information Value Date Recorded Sex Assigned at Not on file Legal Sex Female 5:45 AM IDEA WORKER Gender Identity Not on file Sexual Orientation Not on file Last Filed Vital Signs Vital Sign Reading Time Taken Comments Blood Pressure 128/88 02/15/2021 12:30 PM IDEA WORKER Pulse 74 02/15/2021 12:30 PM IDEA WORKER Temperature 36.2 C (97.2 F) 02/15/2021 12:30 PM IDEA WORKER Respiratory Rate 14 02/15/2021 12:30 PM IDEA WORKER Oxygen Saturation 96% 02/15/2021 12:30 PM IDEA WORKER Inhaled Oxygen Concentration - - Weight 86.6 kg (191 lb) 02/15/2021 7:49 AM IDEA WORKER Height 170.2 cm (5' 7) 02/15/2021 7:49 AM IDEA WORKER Body Mass Index 29.91 02/15/2021 7:49 AM IDEA WORKER Plan of Treatment Health Maintenance Due Date Last Done Comments COLOGUARD (AGES 45-75) - COLON CA SCREENING 1965 COLON MONITORING 1965 COLONOSCOPY - COLON CA SCREENING 1965 CT COLONOGRAPHY - COLON CA SCREENING 1965 Colorectal Cancer Screening 1965 FIT - COLON CA SCREENING 1965 FLEX SIG - COLON CA SCREENING 1965 LIPID TESTING 1965 MAMMOGRAM 1965 HIV SCREENING 1980 DTAP/TDAP/TD VACCINES (1 - Tdap) 1984 HEPATITIS B VACCINE (1 of 3 - 19+ 3-dose series) 1984 PNEUMOCOCCAL VACCINE 50+ (1 of 2 - PCV) 1984 ZOSTER VACCINE (1 of 2) 1984 PAP SMEAR 1986 PAP with HPV 1995 COVID-19 VACCINE (3 - Moderna risk series) 06/23/2020 05/26/2020, 04/23/2020 SCREENING FOR DIABETES 10/30/2023 10/29/2020, 2020 DEPRESSION SCREENING 03/27/2024 INFLUENZA VACCINE (Season Ended) 2024 12/31/2020, 01/01/2020, 12/09/2018, Additional history exists HEPATITIS C SCREENING Completed 10/29/2020 HIB VACCINE Aged Out No longer eligi ble based on patient's age to complete this topic HPV VACCINE Aged Out No longer eligi ble based on patient's age to complete this topic MENINGOCOCCAL (Group B) VACCINE SHARED DECISION-MAKING Aged Out No longer eligible based on patient's age to complete this topic MENINGOCOCCAL GROUPS A/C/Y/W VACCINE Aged Out No longer eligible based on patient's age to complete this topic Procedures Procedure Name Priority Date/Time Associated Diagnosis Comments DERMATOPATHOLOGY Routine 07/08/2024 1:47 PM CDT from Last 3 Months Results * DERMATOPATHOLOGY (07/08/2024 1:47 PM CDT) Case Report Dermatopathology Report Case: [id number] Authorizing Provider: Emily Sanchez MD Collected: 07/08/2024 01:47 PM Ordering Location: [facility] - Received: 07/09/2024 04:18 PM DermPath Lab Pathologist: Brittany Meek MD Specimen: Skin, left lateral cheek 4:31 PM CDT DERMATOPATHOLOGY LABORATORY Final Diagnosis Specimen A. SKIN, left lateral cheek: SEBORRHEIC KERATOSIS, CLONAL TYPE (L82.1) 4:31 PM CDT DERMATOPATHOLOGY LABORATORY at 1631 CDT Clinical History Nevus vs SK 4:31 PM CDT DERMATOPATHOLOGY LABORATORY Gross Description Specimen A: Received is one formalin filled container labeled with the patient's name and designated left lateral cheek. The specimen consists of a shave biopsy measuring 8x6x1 mm. Jar 0. 4:31 PM CDT DERMATOPATHOLOGY LABORATORY Microscopic Description Specimen A. SKIN, left lateral cheek: Sections show a proliferation of keratinocytes with overlying hyperkeratosis. Aggregates of keratinocytes with abundant pale-staining cytoplasm appear demarcated from surrounding basaloid keratinocytes. Mib1 (Ki-67), a proliferation marker, highlights only the clonal areas and basal keratinocytes. 4:31 PM CDT DERMATOPATHOLOGY LABORATORY Disclaimer An external and internal positive and negative controls are appropriate for the histochemical, immunohistochemical and immunofluorescence stain(s) in this case (if any), except where stated explicitly. The performance characteristics of the stain(s) cited in this report were developed and its performance characteristic determined by the Dermatopathology Laboratory at [facility], directed by Dr. Avis Meek. These tests need not be, and therefore are not, approved by the [place] Food and Drug Administration. The tests are used for clinical purposes. Billing Codes Specimen Charges Stain Charges 36796 1 05261 1 4:31 PM CDT DERMATOPATHOLOGY LABORATORY Embedded Images 4:31 PM CDT DERMATOPATHOLOGY LABORATORY Pathology/Cytolo gy TISSUE SPECIMEN FROM SKIN / Unknown 07/08/2024 1:47 PM CDT 07/09/2024 4:18 PM CDT Emily Sanchez MD LAB - PATHOLOGY/CYTOLOGY OR DERABLES Final Result DERMATOPATHOLOGY LABORATORY [facility] - Department of Dermatology [facility] [address] [place] [address], [facility] [phone] from Last 3 Months Insurance [place] [id number] [facility] Member Subscriber Plan / Payer (Ef fective 2012-Present) Name:PavellevKenyatta Relation to Subscriber:Self Name:LAUREN SANZNDCheryl Pettit Payer ID:[id number] (NAIC) Type:HMO Address: [place] [id number] [facility] Member Subscriber Plan / Payer (Ef fective 2012-Present) Name:Kenyatta Mohan Relation to Subscriber:Self Name:CHEMA HEBERTKENYATTA Pettit Payer ID:[id number] (NAIC) Type:[employer] Address: [place] [phone] Advance Directives * Full Code (Latest Code Status on File) Date Activated Date Inactivated Comments 02/15/2021 12:13 PM 02/15/2021 1:44 PM Care Teams External Relations Director Relationship Specialty Start Date End Date Daphnie Cristina MD [address] [place] [address] PCP - General Family Medicine 12/24/20
--- OUTSIDE RECORDS SUMMARY | 2024-09-09 13:14 | XMS_ITS | Clinical Summary ---
Author Organization [facility] Address [address] [place] [address] Phone Care Team Providers Care Analytics Lead Name Role Phone Daphnie Cristina MD Primary Care Provider [phone] Allergies Active Allergy Reactions Criticality Noted Date Comments Meperidine Nausea and Vomiting Low 09/23/2010 Oxycodone-Acetaminophen Hives,Itching High 1 Medications ALPRAZolam (XANAX) 0.5 mg tablet Take 0.5 mg by mouth nightly as needed. Active metoprolol tartrate (LOPRESSOR) 50 mg Oral tablet Take 50 mg by mouth daily. Active CYANOCOBALAMIN, VITAMIN B-12, (VITAMIN B-12 ORAL) Take by mouth daily. Active DULoxetine (CYMBALTA) 60 mg Capsule, Delayed Release(E.C.) Take 60 mg by mouth daily. Active pantoprazole (PROTONIX) 40 mg Tablet, Delayed Release (E.C.) Take 40 mg by mouth daily. Active leflunomide (ARAVA) 20 mg Tablet Take 20 mg by mouth. Active sodium chloride 0.9 % irrigation Solution Apply to affected area 3-4 times daily 1000 mL 1 09/15/2021 2:32 PM CDT 2 Active lamoTRIgine (LaMICtal) 100 mg tablet Take 100 mg by mouth daily. Active gabapentin (NEURONTIN) 600 mg tablet Take 600 mg by mouth 3 times daily. Active immune globulin, human,,IgG, (GAMMAGARD S-D) 10 gram Recon Soln Inject by intravenous injection one time only. Active Active Problems Problem Noted Date Diagnosed Date Malignant neoplasm of upper- outer quadrant of right breast in female, estrogen receptor positive 12/16/2021 Overview (12/16/2021): Stage: Clinical T1N0 Date of diagnosis: 12/02/2021 Diagnosis: RIGHT IDC ER: Negative (0/8); NH: Negative (0/8); HER2: Equivocal (score 2+). HER2 by FISH negative Surgeon: [facility] Surgery: Medical Oncologist: Chemotherapy: Radiation Oncologist: Radiation: Hormonal therapy: S/P ablation of accessory bypass tract 1 Sustained SVT 09/16/2010 Angina 03/18/2010 HTN (hypertension), benign 03/18/2010 S/P partial thyroidectomy 03/18/2010 Hyperlipidemia LDL goal < 100 03/18/2010 Family History Medical History Relation Name Comments Coronary Artery Disease Father Coronary Artery Disease Mother Heart Attack Paternal Grandfather Breast Cancer Neg Hx Colon Cancer Neg Hx Relation Name Status Comments Father Alive Mother Alive Paternal Grandfather Paternal Grandmother Social History Tobacco Use Types Packs/Day Years Used Date Smoking Tobacco: Never Smokeless Tobacco: Never Tobacco Cessation:Counseling Given: Not Answered Alcohol Use Standard Drinks/Week Comments No 0 (1 standard drink = 0.6 oz pur e alcohol) Comments No Sex and Gender Information Value Date Recorded Sex Assigned at Not on file Legal Sex Female 4:55 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 Gender Identity Not on file Sexual Orientation Not on file Occupation Industry Job Start Date Job End Date Not on file Not on file Not on file Not on file Last Filed Vital Signs Vital Sign Reading Time Taken Comments Blood Pressure 105/73 01/14/2022 10:26 AM CDT Pulse 63 01/14/2022 10:26 AM CDT Temperature 36.1 C (97 F) 01/14/2022 10:11 AM CDT Respiratory Rate 16 01/14/2022 10:26 AM CDT Oxygen Saturation 98% 01/14/2022 10:26 AM CDT Inhaled Oxygen Concentration - - Weight 84.4 kg (186 lb 1.6 oz) 01/14/2022 9:32 A M CDT Height 170.2 cm (5' 7) 01/14/2022 9:32 AM CDT Body Mass Index 29.15 01/14/2022 9:32 AM CDT Plan of Treatment Health Maintenance Due Date Last Done Comments DTAP/TDAP/TD VACCINES (1 - Tdap) 1984 HEPATITIS B VACCINES (1 of 3 - 19+ 3-dose series) 1984 ZOSTER VACCINE (1 of 2) 1984 HPV/Cotest (21-29) 1986 CERVICAL CANCER SCREENING 1995 HPV/Cotest (30-65) 1995 PAP SMEAR 1995 FIT-DNA Q 3 years 2010 FIT/FOBT Q 1 year 2010 Flex Sig/CT Colonography Q 5 years 2010 BREAST CANCER SCREENING 12/29/2022 12/30/19, 12/29/2021, 11/23/2021, Additional history exists INFLUENZA VACCINE (#1) 2023 , 12/31/2020, 01/01/2020, Additional history exists COVID-19 Vaccine (2023-2 5 season) 2023 08/17/2021, 02/17/2021, 05/26/2020, Additional history exists COLORECTAL SCREENING 01/14/2027 01/14/2022, 01/14/2022, 01/14/2022, Additional history exists Colorectal Cancer Screening 01/14/2027 Procedures Procedure Name Priority Date/Time Associated Diagnosis Comments COLONOSCOPY REPORT 01/14/2022 10 :14 AM CDT MAMMO DIAG UNI RIGHT 3D ALEENA W OR WO CAD Routine 11/23/2021 1:06 PM CDT Abnormal mammogram from Last 3 Months or Most Recently Relevant to Health Maintenance Results * COLONOSCOPY REPORT (01/14/2022 10:14 AM CDT) Narrative Procedure Note Maria Teresa Starr MD - 01/14/2022 10:13 AM CDT [facility] Endoscopy Patient Name: Kenyatta Mohan Procedure Date: 01/14/2022 Date of : 1965 Attending MD: Maria Teresa Starr MD, Procedure: Colonoscopy Indications: Surveillance: Personal history of adenomatous polyps on last colonoscopy > 5 years ago, Last colonoscopy: July 2016 Providers: Maria Teresa Starr MD Referring MD: Daphnie Cristina MD Complications: No immediate complications. Procedure: Informed consent was obtained for the procedure, including moderate sedation after risks were discussed. Based on the pre-procedure assessment, including review of the patient's medical history, medications, allergies, and review of systems, the patient was deemed to be an appropriate candidate for sedation. A timeout was performed. Continuous ECG monitoring, pulse oximetry, blood pressure monitoring, and direct observation were performed. The scope was introduced through the anus and advanced to the terminal ileum. The colonoscopy was performed without difficulty. The patient tolerated the procedure well. The quality of the bowel preparation was good. Estimated Blood Loss: Estimated blood loss: none. Findings: The digital rectal exam was normal. The terminal ileum appeared normal. A few diverticula were found in the left colon. The retroflexed view of the distal rectum and anal verge was normal and showed no anal or rectal abnormalities. Impression: - The examined portion of the ileum was normal. - Diverticulosis in the left colon. - The distal rectum and anal verge are normal on retroflexion view. - No specimens collected. Recommendation: - Discharge patient to home. - Continue present medications. - Repeat colonoscopy in 5 years for surveillance. Maria Teresa Starr MD 01/14/2022 10:13:06 AM This report has been signed electronically. Number of Addenda: [address]; [place] [address] Maria Teresa Starr MD GI PROCEDURE ORDERABLES Final Result * (ABNORMAL) MAMMO DIAG UNI RIGHT 3D ALEENA W OR WO CAD (11/23/2021 1:06 PM CDT) Anatomical Region Laterality Modality Breast Right Mammography 11/23/2021 1:06 PM CDT Impressions 11/23/2021 2:28 PM CDT IMPRESSION: 1. Round mass with microlobulated margins at 2:00 measuring up to 0.9 cm is suspicious. 2. No axillary adenopathy. OVERALL FINAL ASSESSMENT: BI-RADS Category 4b: Moderately suspicious finding - biopsy should be considered. RECOMMENDATION: Ultrasound-guided right breast biopsy. Findings discussed with the patient. The patient will meet with the Breast Imaging Nurse Navigator to schedule the biopsy. DICTATION LOCATION: [facility] 11/23/2021 2:28 PM CDT RIGHT DIGITAL DIAGNOSTIC IMPLANT MAMMOGRAM WITH TOMOSYNTHESIS AND CAD LIMITED RIGHT BREAST ULTRASOUND DATE: 11/23/2021 1:06 PM TECHNIQUE: Images were performed using 2D full field digital mammography with 3D tomosynthesis images. CAD analysis was performed. HISTORY: Abnormal screening mammogram. COMPARISON: Prior mammograms, dating back to 07/16/2009 and most recently 11/16/2021. BREAST COMPOSITION: There are scattered areas of fibroglandular density. FINDINGS: Additional spot compression tomosynthesis images were obtained. A subglandular, silicone implant is partially imaged and appears intact. In the upper inner quadrant posterior depth, there is a round mass with microlobulated margins and a few associated calcifications. This corresponds to the finding on the screening mammogram. No clustered microcalcifications or architectural distortion is seen in the remainder of the breast. Limited right breast ultrasound was performed by the showroom sales consultant. At 2:00, 7 cm from the nipple, there is a round, hypoechoic mass with microlobulated margins measuring 0.9 x 0.7 x 0.9 cm. This corresponds to the mammographic mass. Targeted ultrasound of the axilla shows normal morphology axillary nodes. Procedure Note Bryson Nava MD - 11/23/2021 RIGHT DIGITAL DIAGNOSTIC IMPLANT MAMMOGRAM WITH TOMOSYNTHESIS AND CAD LIMITED RIGHT BREAST ULTRASOUND DATE: 11/23/2021 1:06 PM TECHNIQUE: Images were performed using 2D full field digital mammography with 3D tomosynthesis images. CAD analysis was performed. HISTORY: Abnormal screening mammogram. COMPARISON: Prior mammograms, dating back to 07/16/2009 and most recently 11/16/2021. BREAST COMPOSITION: There are scattered areas of fibroglandular density. FINDINGS: Additional spot compression tomosynthesis images were obtained. A subglandular, silicone implant is partially imaged and appears intact. In the upper inner quadrant posterior depth, there is a round mass with microlobulated margins and a few associated calcifications. This corresponds to the finding on the screening mammogram. No clustered microcalcifications or architectural distortion is seen in the remainder of the breast. Limited right breast ultrasound was performed by the showroom sales consultant. At 2:00, 7 cm from the nipple, there is a round, hypoechoic mass with microlobulated margins measuring 0.9 x 0.7 x 0.9 cm. This corresponds to the mammographic mass. Targeted ultrasound of the axilla shows normal morphology axillary nodes. IMPRESSION: 1. Round mass with microlobulated margins at 2:00 measuring up to 0.9 cm is suspicious. 2. No axillary adenopathy. OVERALL FINAL ASSESSMENT: BI-RADS Category 4b: Moderately suspicious finding - biopsy should be considered. RECOMMENDATION: Ultrasound-guided right breast biopsy. Findings discussed with the patient. The patient will meet with the Breast Imaging Nurse Navigator to schedule the biopsy. DICTATION LOCATION: [facility] Kiya Williamson MD MAMMO ORDERABLES Final Result from Last 3 Months or Most Recently Relevant to Health Maintenance Insurance [facility] [id number] [employer] Advance Directives For more information, please contact: [phone] * Full Code (Latest Code Status on File) Date Activated Date Inactivated Comments 01/14/2022 9:35 AM 01/14/2022 12:51 PM * Full Code Date Activated Date Inactivated Comments 08/23/2016 9:23 AM 08/23/2016 1:34 PM * Full Code Date Activated Date Inactivated Comments 11/03/2010 1:37 PM 11/03/2010 7:41 PM * Full Code Date Activated Date Inactivated Comments 11/03/2010 10:43 AM 11/03/2010 1:37 PM Care Teams Analytics Lead Relationship Specialty Start Date End Date Daphnie Cristina MD [address] [place] [address] PCP - General 06/22/09
--- OUTSIDE RECORDS SUMMARY | 2024-09-09 13:14 | XMS_ITS | Encounter Summary ---
Author Organization [facility] [employer] [facility] Address [address] [place] [address] Phone Care Team Providers Care Fabric Worker Name Role Phone Daphnie Cristina MD Primary Care Provider [phone] Emily Ha MD Unavailable [phone] Doe Adam MD PhD Unavailable Lissett Harris MD Unavailable [phone] Thony Suresh MD Unavailable [phone] Encounter Details Date Type Department Care Team (Latest Contact Info) Description 02/02/2018 Orders Only [facility] Scanning, Provider Social History Tobacco Use Types Packs/Day Years Used Date Smoking Tobacco: Never Smokeless Tobacco: Never Comments Unknown Sex and Gender Information Value Date Recorded Sex Assigned at Not on file Legal Sex Female 3:39 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 Gender Identity Female 09/09/2019 8:18 AM CDT Sexual Orientation Straight 09/09/2019 8: 18 AM CDT documented as of this encounter Plan of Treatment Not on file documented as of this encounter Procedures Procedure Name Priority Date/Time Associated Diagnosis Comments SCAN - LABS 02/02/2018 documented in this encounter Results * SCAN - LABS (02/02/2018) us Provider Scanning Final Result documented in this encounter Visit Diagnoses Not on filedocumented in this encounter Additional Health Concerns Infection Onset Date Last Indicated Resolved Time COVID: Suspected 08/15/2022 08/15/2022 08/16/2022 3:05 AM CDT COVID: Suspected Comment:Pt called with symptoms of cough, congestion, and fever and was sent for PCR. Pending results 08/15/2022 08/17/2022 08/18/2022 3:05 AM CDT documented as of this encounter Care Teams Fabric Worker Relationship Specialty Start Date End Date Daphnie Cristina MD PCP - General 06/10/16 Emily Ha MD Radiation Oncologist Radiation Oncology 03/25/22 Doe Adam MD PhD Medical Oncologist/Senior Front End Web Developer Medical Oncology 03/25/22 Lissett Harris MD Allergy and Immunology 04/06/22 Thony Suresh MD [address] [place] [address] Medical Oncologist Medical Oncology 03/29/23 documented as of this encounter
--- OUTSIDE RECORDS SUMMARY | 2024-09-09 13:14 | XMS_ITS | Encounter Summary ---
Author Organization [facility] Address [address] [place] [address] Care Team Providers Care Filling Hauler Weaving Name Role Phone Daphnie Cristina MD Primary Care Provider Encounter Details Date Type Department Care Team (Late st Contact Info) Description 07/08/2024 Lab Requisition [facility] - DermPath Lab [address] [place] [address] Emily Sanchez MD [address] [facility] [address] [place] [address] Social History Tobacco Use Types Packs/Day Years Used Date Smoking Tobacco: Never Smokeless Tobacco: Never Alcohol Use Standard Drinks/Week Comments Never 0 (1 standard drink = 0.6 oz pur e alcohol) Comments Unknown Sex and Gender Information Value Date Recorded Sex Assigned at Not on file Legal Sex Female 5:45 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 Gender Identity Not on file Sexual Orientation Not on file documented as of this encounter Plan of Treatment Not on file documented as of this encounter Procedures Procedure Name Priority Date/Time Associated Diagnosis Comments DERMATOPATHOLOGY Routine 07/08/2024 1:47 PM CDT documented in this encounter Results * DERMATOPATHOLOGY (07/08/2024 1:47 PM CDT) Case Report Dermatopathology Report Case: [id number] Authorizing Provider: Emily Sanchez MD Collected: 07/08/2024 01:47 PM Ordering Location: [facility] - Received: 07/09/2024 04:18 PM [...] characteristic determined by the Dermatopathology Laboratory at [facility], directed by Dr. Avis Meek. These tests need not be, and therefore are not, approved by the [place] Food and Drug Administration. The tests are used for clinical purposes. Billing Codes Specimen Charges Stain Charges 33503 1 93210 1 4:31 PM CDT DERMATOPATHOLOGY LABORATORY Embedded Images 4:31 PM CDT DERMATOPATHOLOGY LABORATORY Pathology/Cytolo gy TISSUE SPECIMEN FROM SKIN / Unknown 07/08/2024 1:47 PM CDT 07/09/2024 4:18 PM CDT Emily Sanchez MD LAB - PATHOLOGY/CYTOLOGY OR DERABLES Final Result DERMATOPATHOLOGY LABORATORY [facility] - Department of Dermatology [facility] [address] [place] [address], [address] [place] [address], [facility] [phone] documented in this encounter Visit Diagnoses Not on filedocumented in this encounter Care Teams Filling Hauler Weaving Relationship Specialty Start Date End Date Daphnie Cristina MD [address] [place] [address] PCP - General Family Medicine 12/24/20 documented as of this encounter
--- OUTSIDE RECORDS SUMMARY | 2024-09-09 13:15 | XMS_ITS | Referral Summary ---
Author Organization [facility] al Address [address] [place] [address] Care Team Providers Care Navigation Officer Name Role Phone Daphnie Cristina MD Primary Care Provider Emily Ha MD Unavailable [phone] Doe Adam MD PhD Unavailable Lissett Harris MD Unavailable Thony Suresh MD Unavailable [phone] Allergies Active Allergy Reactions Criticality Noted Date Comments Amoxicillin-Pot Clavulanate Diarrhea Low 02/02/20 22 Meperidine Nausea And Vomiting,Vomiting,Stomach upset High 09/23/2010 Oxycodone-Acetaminophen Hives,Itching High 1 Medications immune globulin (HIZENTRA) subcutaneous infusion Hizentra 20% 10 gm subq infusion every 7 days 7 Active cholecalciferol (VITAMIN D-3) 2,000 unit tablet Take 2.5 tablets (5,000 Units total) by mouth daily Active DULoxetine DR (CYMBALTA) 60 mg capsule Take 90 mg by mouth daily Active pantoprazole DR (PROTONIX) 40 mg EC tablet Take 1 tablet (40 mg total) by mouth daily Active ALPRAZolam (XANAX) 0.5 mg tablet Take 2 tablets (1 mg total) by mouth daily as needed 0 10/23/201 9 Active lamoTRIgine (LaMICtal) 100 mg tablet Take 1 tablet (100 mg total) by mouth daily Active metoprolol XL (TOPROL-XL) 50 mg extended release tablet [address] (CYMBALTA) 30 mg capsule Take 3 capsules (90 mg total) by mouth daily 2 Active gabapentin (NEURONTIN) 600 mg tablet 1 tablet (600 mg total) 2 Active biotin 10,000 mcg capsule Take 1 capsule (10,000 mcg total) by mouth daily Active EPINEPHrine 0.3 mg/0.3 mL auto-injection syringeIndicatio ns:Anaphylaxis Inject 0.3 mL (0.3 mg total) into the muscle as instructed as needed for anaphylaxis 1 each 1 3 Active letrozole (FEMARA) 2.5 mg tablet Take 1 tablet (2.5 mg total) by mouth daily 3 Active gabapentin (NEURONTIN) 300 mg capsule 4 Active celecoxib (CeleBREX) 200 mg capsule TAKE 1 CAPSULE DAILY 90 capsule 3 4 Active Active Problems Problem Noted Date Diagnosed Date Personal history of radiation therapy 09/26/2022 Malignant neoplasm of upper- inner quadrant of right breast in female, estrogen receptor positive 03/25/2022 Cancer Staging:Pathologic stage from 03/25/2022:Stage IA(pT1c, pN0(sn), cM0, G3, ER+, CA-, HER2-) - Signed by Emily Ha MD on 03/25/2022 Nasal vestibulitis 02/13/2020 CVID (common variable immunodeficiency) 12/20/19 18 Intermittent asthma 12/14/2017 Psoriatic arthritis 03/10/2017 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 Sustained SVT 09/16/2010 Hyperlipidemia 03/18/2010 HTN (hypertension), benign 03/18/2010 Nontoxic single thyroid nodule 10/28/2008 Resolved Problems Problem Noted Date Diagnosed Date Resolved Date Osteoarthritis of knee 07/20/201507/03 Arthritis 03/31/2015 07/04/2023 Angina pectoris 03/18/2010 07/04/2023 Immunizations Immunization Administration Dates Next Due Influenza, Quadrivalent, Leigha l Culture-based MDCK, Preservative Free, Antibiotic Free, Intramuscular 01/07/2022,01/01/2020 Influenza, Quadrivalent, Spl it, Intramuscular 12/09/2018 Influenza, Quadrivalent, Spl it, Preservative Free, Intramuscular 12/18/2017 Influenza, Split 12/25/2017 Influenza, Trivalent, IM (MDV) 12/31/2020,2013,02/09/2012 Influenza, Trivalent, Preser vative Free, Intramuscular 01/28/2017,02/11/2016,03/31/2015 Moderna SARS-CoV-2 Monovalen t Vaccination (12+ YRS) 02/17/2021,05/26/2020,04/23/2020 Pneumococcal Polysaccharide PPV23 07/23/2015 Social History Tobacco Use Types Packs/Day Years Used Date Smoking Tobacco: Never Smokeless Tobacco: Never Tobacco Cessation:Counseling Given: Not Answered Alcohol Use Standard Drinks/Week Comments Never 0 (1 standard drink = 0.6 oz pur e alcohol) AUDIT-C Answer Date Recorded Frequency of Alcohol Consumption Not on file 07/04/2023 Q2: How many drinks containi ng alcohol do you have on a typical day when you are drinking? 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 Gender Identity Female 09/09/2019 8:18 AM CDT Sexual Orientation Straight 09/09/2019 8: 18 AM CDT Last Filed Vital Signs Vital Sign Reading Time Taken Comments Blood Pressure 121/79 08/10/2023 3:55 PM CDT Pulse 68 08/10/2023 3:55 PM CDT Temperature 36.6 C (97.9 F) 08/10/2023 3:55 PM CDT Respiratory Rate 17 08/10/2023 3:55 PM CDT Oxygen Saturation 96% 08/10/2023 3:55 PM CDT Inhaled Oxygen Concentration - - Weight 68.2 kg (150 lb 6 oz) 08/10/2023 3:55 PM CDT Height 172.8 cm (5' 8.04) 08/10/2023 3:55 PM CD T Body Mass Index 22.84 08/10/2023 3:55 PM CDT Plan of Treatment Not on file Procedures Procedure Name Priority Date/Time Associated Diagnosis Comments HEPATITIS PANEL, ACUTE Routine 03/26/2020 10:53 AM SENIOR DRUPAL DEVELOPER Psoriatic arthritis (HCC) from Last 3 Months or Most Recently Relevant to Health Maintenance Results * Hepatitis panel, acute (03/26/2020 10:53 AM SENIOR DRUPAL DEVELOPER) Hep A IgM Negative Negative [facility] - 01 HepBsAg Negative Negative [facility] - 01 Hep B core IgM Negative Negative [facility] - 01 Hep C Ab <0.1 0.0 - 0.9 s/co ratio [facility] - 01 Comment: Negative: < 0.8 Indeterminate: 0.8 - 0.9 Positive: > 0.9 The CDC recommends that a positive HCV antibody result be followed up with a HCV Nucleic Acid Amplification test (016834). Blood specimen (specimen) 03/26/2020 10:53 AM SENIOR DRUPAL DEVELOPER 03/26/2020 Narrative [facility] - 03/31/2020 4:06 AM SENIOR DRUPAL DEVELOPER Performed at: - [facility] [address] [id number] Delivery Motorcycle Driver: Flo Granado PhD, Phone: [phone] us Romy Melvin MD LAB MICROBIOLOGY - GENERAL O RDERABLES Final Result Performing Organization Address City/State/[facility] Co de Phone Number [facility] - 01 from Last 3 Months or Most Recently Relevant to Health Maintenance Insurance [facility] CHOICE PLUS [facility] CHOICE PLUS GENERIC COPAY ASSIST [facility] CHOICE PLUS Care Teams Navigation Officer Relationship Specialty Start Date End Date Daphnie Cristina MD PCP - General 06/10/16 Emily Ha MD Radiation Oncologist Radiation Oncology 03/25/22 Doe Adam MD PhD Medical Oncologist/Lamination Machine Operator Medical Oncology 03/25/22 Lissett Harris MD Allergy and Immunology 04/06/22 [place] [address] [place] [id number] Medical Oncologist Medical Oncology 03/29/23
--- OUTSIDE RECORDS SUMMARY | 2024-09-09 13:15 | XMS_ITS ---
Author Organization [facility] al Address [address] [place] [address] Care Team Providers Care Guest Services Coordinator Name Role Phone Daphnie Cristina MD Primary Care Provider Emily Ha MD Unavailable [phone] Doe Adam MD PhD Unavailable Lissett Harris MD Unavailable Thony Suresh MD Unavailable [phone] Active Problems Problem Noted Date Diagnosed Date Personal history of radiation therapy 09/26/2022 Malignant neoplasm of upper- inner quadrant of right breast in female, estrogen receptor positive 03/25/2022 Cancer Staging:Pathologic stage from 03/25/2022:Stage IA(pT1c, pN0(sn), cM0, G3, ER+, [place]-, HER2-) - Signed by Emily Ha MD on 03/25/2022 Nasal vestibulitis 02/13/2020 CVID (common variable immunodeficiency) 12/20/19 18 Intermittent asthma 12/14/2017 Psoriatic arthritis 03/10/2017 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 Past Treatment and Therapy Plans Line Care Plan Name Start Date Discontinue Date Treatment Medications Discontinue Reason Plan Provider IV MAINTENANCE THERAPY PLAN 04/22/2022 08/29/2022 No medications scheduled. Therapy Complete Doe Adam MD PhD Oncology Chemotherapy Treatment Plan Name Start Date Discontinue Date Treatment Medications Discontinue Reason Plan Provider Cycles TC: (DOCEtaxe l / Cyclophos phamide) 21 Day Cycles - Breast 3 08/29/2022 cycloPHOSphamide IVPB in 250 mL (vial 200 mg/mL)([id number])DOCEta xel (TAXOTERE) IVPB in 250 mL (vial 20mg/mL) Therapy Complete Doe Adam MD PhD 4 of 4 cycles started Oncology Supportive Care Therapy Plan Plan Name Start Date Discontinue Date Treatment Medications Discontinue Reason Plan Provider Hydration Therapy Plan 04/29/2022 08/29/2022 No medications scheduled. Therapy Complete Doe Adam MD PhD Radiation Treatments * Course C1 R BREAST 202207/20/2022 - 08/17/2022 Treatment Period Energy Fraction Dose Fractions Total Dose Plans Planned RUIQ BRS [facility] 08/10/2022 - 08/17/2022 250 5 / 1,250 R BREAST 07/20/2022 - 08/09/2022 267 15 / 4,005 Reference Points Delivered [facility] DPV 08/10/2022 - 08/17/2022 1,250 carpenter dpv 07/20/2022 - 08/09/2022 4,005 Lifetime Dose Tracking * Chemical Lifetime Dose Automatic Entry Manual Entr y cyclophosphamide 2,299.431 mg/m2 (4,560 mg) 2,299.431 mg/m2 (4,560 mg) 0 mg/m2 (0 mg) Resolved Problems Problem Noted Date Diagnosed Date Resolved Date Osteoarthritis of knee 07/20/201507/03 Arthritis 03/31/2015 07/04/2023 Angina pectoris 03/18/2010 07/04/2023
--- OUTSIDE RECORDS SUMMARY | 2024-09-09 13:15 | XMS_ITS | Clinical Summary ---
Author Organization [facility] al Address [address] [place] [address] Care Team Providers Care Pastry Wrapper Name Role Phone Daphnie Cristina MD Primary Care Provider Emily Ha MD Unavailable [phone] Doe Adam MD PhD Unavailable Lissett Harris MD Unavailable Thony Suresh MD Unavailable Allergies Active Allergy Reactions Criticality Noted Date [...] from 03/25/2022:Stage IA(pT1c, pN0(sn), cM0, G3, ER+, [place]-, HER2-) - Signed by Emily Ha MD [...] (12+ YRS) 02/17/2021,05/26/2020,04/23/2020 Pneumococcal Polysaccharide PPV23 07/23/2015 Surgical History Surgery Date Site/Laterality Comments AL TOTAL THYROID LOBECTOMY U NI W/WO ISTHMUSECTOMY Thyroid Surgery Thyroid Lobectomy - (Added by TW Conv) AL ICAR CATHETER ABLATION ATRIOVENTR NODE FUNCTION Cardiac Catheter His Ablation - (Added by TW Conv) AL ENLARGE BREAST Breast Surgery Enlargement Procedure - (Added by TW Conv) AL TONSILLECTOMY PRIMARY/SECONDARY <AGE 12 Tonsillectomy - (Added by TW Conv) BACK SURGERY 03/10/2022 BREAST BIOPSY 12/02/2021 Right Medical History Medical History Date Comments Allergic rhinitis Asthma Anxiety Autoimmune disease Depression Hypertension Sinusitis Dehydration 04/29/2022 Cancer (HCC) Bronchitis, chronic (HCC) Heart murmur Goiter Family History Medical History Relation Name Comments Diabetes Father Family history of diabetes mellitus - (Added by TW Conv) Hyperlipidemia Father High choleste rol - (Added by TW Conv) Hypertension Father Family history of hypertension - (Added by TW Conv) Rheum arthritis Father Family histo ry of rheumatoid arthritis - (Added by TW Conv) Relation Name Status Comments Father Social History Tobacco Use Types Packs/Day Years [...] on file Legal 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 Gender Identity Female 09/09/2019 8:18 AM CDT Sexual Orientation Straight 09/09/2019 8: 18 AM CDT Obstetrics History Last Filed Vital Signs Vital Sign Reading [...] 08/10/2023 3:55 PM CDT Plan of Treatment Health Maintenance Due Date Last Done Comments Cervical Cancer Screening 1965 Colon Cancer Screening-Colonoscopy 1965 Depression Screening 1965 DTaP/Tdap/Td Vaccine (1 - Tdap) 1976 Hepatitis B Screening 1983 Regular Well Visit/Exam 18-64 1983 Zoster Vaccine (1 of 2) 1984 Pneumococcal vaccine <65 (2 of 2 - PCV) 07/22/2016 07/23/2015 Covid-19 Vaccine (2023-2 5 season) 2023 08/11/2021, 02/17/2021, 02/05/2021, Additional history exists Breast Cancer Screening-Mammogram 04/25/2024 04/25/2023, 04/25/2023, 12/29/2021, Additional history exists Influenza Vaccine (Season Ended) 2024 03/06/2023, 01/07/2022, 12/31/2020, Additional history exists Hepatitis C Screening Completed 03/26/2020 , 06/15/2017, 08/25/2014 Procedures Procedure Name Priority Date/Time Associated Diagnosis Comments HEPATITIS PANEL, ACUTE Routine 03/26/2020 10:53 AM GUNNER'S MATE Psoriatic arthritis (HCC) from Last 3 Months or Most Recently Relevant to Health Maintenance Results * Hepatitis panel, acute (03/26/2020 10:53 AM GUNNER'S MATE) Hep A IgM Negative Negative [facility] - [...] with a HCV Nucleic Acid Amplification test ([id number]). Blood specimen (specimen) 03/26/2020 10:53 AM GUNNER'S MATE 03/26/2020 Narrative [facility] - 03/31/2020 4:06 AM GUNNER'S MATE Performed at: [address] [place] [id number] Graphic Coordinator: Flo Granado PhD, Phone: [phone] us Romy Melvin MD LAB MICROBIOLOGY - GENERAL O RDERABLES Final Result [facility] - 01 from Last 3 Months or Most Recently Relevant to Health Maintenance Insurance [facility] CHOICE PLUS [facility] CHOICE PLUS GENERIC COPAY ASSIST [facility] CHOICE PLUS Member Subscriber Plan / Payer (Ef fective 2017-Present) Name:Kenyatta Anand Relation to Subscriber:Self Name:Kenyatta Anand Payer ID:[id number] (NAIC) Type:[facility] HMO/PPO Address: [place] [id number] Care Teams Pastry Wrapper Relationship Specialty Start Date End Date Daphnie Cristina MD PCP - General 06/10/16 Emily Ha MD Radiation Oncologist Radiation Oncology 03/25/22 Doe Adam MD PhD Medical Oncologist/Bullet Lubricant Mixer Medical Oncology 03/25/22 Lissett Harris MD Allergy and Immunology 04/06/22 Thony Suresh MD [address] [place] [id number] Medical Oncologist Medical Oncology 03/29/23
--- OUTSIDE RECORDS SUMMARY | 2024-09-09 13:15 | XMS_ITS | Encounter Summary ---
Author Organization [facility] Address [address] [place] [address] Phone Care Team Providers Care Tow Boat Captain Name Role Phone Daphnie Cristina MD Primary Care Provider [phone] Emily Ha MD Unavailable [phone] Doe Adam MD PhD Unavailable Lissett Harris MD Unavailable [phone] Thony Suresh MD Unavailable [phone] Encounter Details Date Type Department Care Team (Late st Contact Info) Description 01/17/2022 Telephone [facility] Oncology [facility] 7th [place] [address] [place] [address] Patti Griffith Social History Tobacco Use Types Packs/Day Years Used Date Smoking Tobacco: Never Smokeless Tobacco: Never Alcohol Use Standard Drinks/Week Comments Never 0 (1 standard drink = 0.6 oz pur e alcohol) AUDIT-C Answer Date Recorded Q1: How often do you have a drink containing alc ohol? 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 Pending results 08/15/2022 08/17/2022 08/18/2022 3:05 AM CDT documented as of this encounter Care Teams Tow Boat Captain Relationship Specialty Start Date End Date Daphnie Cristina MD PCP - General 06/10/16 Emily Ha MD Radiation Oncologist Radiation Oncology 03/25/22 Doe Adam MD PhD Medical Oncologist/Operations Representative Medical Oncology 03/25/22 Lissett Harris MD Allergy and Immunology 04/06/22 Thony Suresh MD [address] [place] [id number] Medical Oncologist Medical Oncology 03/29/23 documented as of this encounter
== END 2024-09-09 12:20 | disposition home or self-care (01) ==
LOC: CHSIMG 12:20
PROVIDERS: PCP Family Medicine; Visit Provider Family Medicine
DX: Z78.0 Asymptomatic menopausal state (principal); M85.89 Other specified disorders of bone density and structure, multiple sites
CPT/HCPCS: 77080

== ENCOUNTER 2024-09-30 14:32 | Emergency (ER) | payer OTHER, SELFPAY ==
[2024-09-30 14:37] VITALS: BP 132/90; PULSE 70; RESP 16; TEMP 36.4; O2SAT 99
--- NOTE | 2024-09-30 15:18 | ED.URI ---
HPI - URI/Sore Throat General Chief Complaint: Upper Respiratory Infection Stated Complaint: Cough/Chills Time Seen by Provider: 09/30/24 14:52 Source: patient and RN notes reviewed Mode of arrival: ambulatory Limitations: no limitations History of Present Illness HPI Narrative: Patient presents today with a 2 day history of body aches and harsh cough with wheezing, fatigue, chills, and chest tightness that started yesterday. Denies fever. She tried an albuterol nebulizer treatment improvement. History of asthma and primary immunodeficiency. Related Data Home Medications ?Medication ?Instructions ?Recorded ?Confirmed ?Last Taken ?Type immune glob,gamma(IgG) 10 10 gm IV WEEKLY 08/16/19 02/12/24 Unknown History rkyp-bzu-lbvi-IgA 0 to 50 mcg/mL IV solution cholecalciferol (vitamin D3) 125 125 mcg PO DAILY 06/03/20 02/12/24 Unknown History mcg (5,000 unit) tablet (Vitamin D3) Allergies Allergy/AdvReac Type Severity Reaction Status Date / Time oxycodone Allergy Intermediate Hives Verified 09/30/24 14:39 meperidine Allergy Unknown Itching Verified 09/30/24 14:39 [facility] Past Medical History Medical History Primary immune deficiency disorder Immunodeficiency Spinal stenosis Disorder of intervertebral disc of lumbar spine Hypothyroidism Asthma Irritable bowel syndrome Depression Anxiety Hypertension Surgical History Surgical History History of back surgery H/O lumpectomy Family History Family History Father Hypertension Mother Hypertension Other Diabetes mellitus Family history of arthritis Social History Social History Smoking status: Never smoker Second hand tobacco smoke exposure: No Alcohol intake: never Substance use: never Substance use type: does not use Lack of Transportation: No Lack of Food: Never True Current Housing: I Have Housing Concerned About Future Housing: No Difficulty Paying Gas/Electric Bills: No Difficulty Paying for Meds: No Currently Unemployed: No Education: Bachelor's Degree Difficulty w/ Childcare or Family Care: No Living arrangements: with family Gender identity (if verbalized by the patient): Female Sexual Orientation (if Verbalized by the Patient): Straight or Heterosexual Spiritual care concerns: No Agree to blood products: Yes Comments At time of signature, I have reviewed and agree with nursing past medical, surgical, social and family history unless otherwise noted. Please see nursing chart for further information. There is no relevant family history pertinent to the presenting complaint Exam Narrative: GENERAL: Mildly ill-appearing, well-nourished, and in no acute distress. HEAD: Normocephalic, atraumatic. EYES: EOMI. No redness or drainage. Conjunctivae normal. ENT: Mucous membranes pink and moist. Nares clear. No rhinorrhea. TMs normal bilaterally. Throat normal with small amount of white postnasal drainage. Uvula midline. NECK: Normal AROM. Supple. No lymphadenopathy. CHEST: No respiratory distress. Clear to auscultation. Harsh cough noted. HEART: Regular rate and rhythm. No murmur appreciated. EXTREMITIES: Normal range of motion. No edema. SKIN: Warm, dry, no rash. Capillary refill normal. Normal skin turgor. NEURO: No focal deficits. Alert and oriented x3. Gait steady. PSYCH: Normal affect. No signs of depression or anxiety. Course Course Level of Care: Express Care Visit Vital Signs Vital signs: Vital Signs Temperature 97.5 F L 09/30/24 14:37 Pulse Rate 70 09/30/24 14:37 Respiratory Rate 16 09/30/24 14:37 Blood Pressure 132/90 09/30/24 14:37 Pulse Oximetry 99 09/30/24 14:37 Oxygen Delivery Room Air 09/30/24 14:37 Temperature 97.5 F L 09/30/24 14:37 Pulse Rate 70 09/30/24 14:37 Respiratory Rate 16 09/30/24 14:37 Blood Pressure 132/90 09/30/24 14:37 Pulse Oximetry 99 09/30/24 14:37 Oxygen Delivery Room Air 09/30/24 14:40 Reviewed MDM - URI/Sore Throat MDM Narrative Medical decision making narrative: 59-year-old female patient with history of asthma and primary immune deficiency disorder. Complaining of cough, chest tightness, wheezing, fatigue and body aches. Vital signs are stable and patient has been afebrile. Chest exam normal. Patient will be treated with a short course of tapering prednisone. Review of patient's chart shows that she had been on daily prednisone some years ago and had developed adrenal insufficiency. Also prescription for benzonatate and a refill of her albuterol nebulizers sent to pharmacy. Strict ED precautions given to patient. She states she is very familiar with worsening respiratory symptoms and will keep a close eye on how she is feeling. Patient states she typically will get some bronchitis symptoms in the fall. Etiology of current symptoms likely viral given body aches, chills as well as her respiratory complaints. Differential Diagnosis Differential diagnosis: Likely upper respiratory infection, viral infection, bronchitis and other (Asthma exacerbation, pneumonia) Critical Care Time Critical Care Time Critical Care Time: No Discharge Plan Discharge Clinical Impression: Bronchitis Patient Disposition: Home Condition: Stable Instructions: Acute Bronchitis (ED) Additional Instructions: Please take all medications as prescribed. Go to the ER immediately if symptoms worsen. Follow-up with your PCP with any additional concerns. Your blood pressure was elevated above 120/80 today at Urgent Care. This puts you above the threshold for follow up. Please schedule a followup visit with your personal physician as soon as possible, for further evaluation and treatment. Even blood pressure exceeding 120/80 may indicate pre-hypertension. Patient Language: Monegasque Prescriptions: New prednisone 10 mg tablet See Rx Instructions .ROUTE .COMPLEX Qty: 21 0RF Rx Instructions: 4 tabs daily x3 days, then 2 tabs daily x3 days, then 1 tab daily x3 days benzonatate 200 mg capsule 200 mg PO TID PRN (Reason: cough) Qty: 20 0RF albuterol sulfate 2.5 mg /3 mL (0.083 %) solution for nebulization 2.5 mg inhalation Q4-6H PRN (Reason: shortness of breath or wheezing) Qty: 90 0RF No Action albuterol sulfate 90 mcg/actuation HFA aerosol inhaler 2 puff inhalation Q4-6H PRN (Reason: shortness of breath or wheezing) 30 Days Qty: 8.5 0RF albuterol sulfate 90 mcg/actuation HFA aerosol inhaler 2 puff inhalation Q4-6H PRN (Reason: shortness of breath or wheezing) 30 Days Qty: 8.5 0RF immun glob Z-ztx-lagt-IgA 0-50 10 gram recon soln 10 gm IVPB WEEKLY cholecalciferol (vitamin D3) [Vitamin D3] 125 mcg (5,000 unit) Tablet 125 mcg PO DAILY hydrocortisone 2.5 % cream 1 applic topical BID PRN (Reason: rash) Qty: 28.35 0RF fluticasone propion-salmeterol [Advair Diskus] 250-50 mcg/dose blister with device 1 inh INHALATION BID Qty: 3 1RF metoprolol succinate 50 mg tablet extended release 24 hr 50 mg PO BID Qty: 180 3RF lamotrigine 100 mg tablet 100 mg PO DAILY Qty: 90 1RF gabapentin 300 mg capsule 900 mg PO QAM Qty: 270 1RF duloxetine 60 mg capsule,delayed release(DR/EC) 60 mg PO BID Qty: 180 3RF hydroxyzine HCl 25 mg tablet 25 mg PO BID PRN (Reason: itching) Qty: 40 0RF triamcinolone acetonide 0.1 % cream 1 applic topical BID Qty: 240 0RF rosuvastatin 5 mg tablet 5 mg PO DAILY Qty: 90 1RF pantoprazole [Protonix] 40 mg tablet,delayed release (DR/EC) 40 mg PO QAM Qty: 90 3RF alprazolam [Xanax] 0.5 mg tablet 0.5 mg PO TID PRN (Reason: anxiety) Qty: 270 0RF Follow-up/Referrals: PHYSICIAN,[employer] [Primary Care Provider] - Time of Disposition: 15:12
== END 2024-09-30 15:15 | disposition home or self-care (01) ==
PROVIDERS: Emergency Provider Nurse Practitioner
DX: J40 Bronchitis, not specified as acute or chronic (principal); D84.9 Immunodeficiency, unspecified; I10 Essential (primary) hypertension; E03.9 Hypothyroidism, unspecified; J45.909 Unspecified asthma, uncomplicated; M48.00 Spinal stenosis, site unspecified
CPT/HCPCS: 99213; G0463

== ENCOUNTER 2024-11-17 16:13 | Emergency (ER) | payer OTHER, SELFPAY ==
[2024-11-17 16:30] VITALS: BP 123/86; PULSE 79; RESP 16; TEMP 36; O2SAT 100
[2024-11-17 16:52] LABS: EDCOVIDSCREEN Negative (Negative); EDINFLUASCREEN Negative (Negative); EDINFLUBSCREEN Negative (Negative); EDSTREPNEGPOS1 Negative (Negative)
--- NOTE | 2024-11-17 17:19 | ED_ITS ---
HPI - General Adult General Chief complaint: Upper Respiratory Infection Stated complaint: SORE THROAT Source: patient Mode of arrival: ambulatory Limitations: no limitations History of Present Illness HPI narrative: Patient presents for evaluation of sick symptoms. Symptom onset two days ago. She reports postnasal drainage, sore throat, cough and nausea. She denies any fever, chills, vomiting or diarrhea. 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 She is immunodeficient. She does not smoke. She has recurrent bronchitis. She responds well to tessalon. Related Data Home Medications ?Medication ?Instructions ?Recorded ?Confirmed ?Last Taken ?Type immune glob,gamma(IgG) 10 10 gm IV WEEKLY 08/16/19 Unknown History vwzl-nwz-jeco-IgA 0 to 50 mcg/mL IV solution cholecalciferol (vitamin D3) 125 125 mcg PO DAILY 05/2511/17/24 Unknown History mcg (5,000 unit) tablet (Vitamin D3) Allergies Allergy/AdvReac Type Severity Reaction Status Date / Time oxycodone Allergy Intermediate Hives Verified 11/17/24 16:27 meperidine Allergy Unknown Itching Verified 11/17/24 16:27 Review of Systems Review of Systems: CONSTITUTIONAL: Denies fever, chills, or sweats. EYES: Denies visual changes, redness, or discharge. ENT: Reports sore throat and postnasal drainage. Denies otalgia. CARDIOVASCULAR: Denies chest pain, palpitations, or edema. RESPIRATORY: Reports cough. Denies shortness of breath GASTROINTESTINAL: Reports nausea. Denies abdominal pain, vomiting, or diarrhea. GENITOURINARY: Denies dysuria or hematuria. SKIN: Denies rash or itching. MUSCULOSKELETAL: Denies back pain, joint pain, or myalgia. NEUROLOGIC: Denies headache, numbness, dizziness, or weakness. PSYCHIATRIC: Denies anxiety or depression. [facility] Past Medical History Medical History Primary immune deficiency disorder Immunodeficiency Spinal stenosis Disorder of intervertebral disc of lumbar spine Hypothyroidism Asthma Irritable bowel syndrome Depression Anxiety Hypertension Surgical History Surgical History History of back surgery H/O lumpectomy Family History Family History Father Hypertension Mother Hypertension Other Diabetes mellitus Family history of arthritis Social History Social History Smoking status: Never smoker Second hand tobacco smoke exposure: No Alcohol intake: never Substance use: never Substance use type: does not use Lack of Transportation: No Lack of Food: Never True Current Housing: I Have Housing Concerned About Future Housing: No Difficulty Paying Gas/Electric Bills: No Difficulty Paying for Meds: No Currently Unemployed: No Education: Bachelor's Degree Difficulty w/ Childcare or Family Care: No Living arrangements: with family Gender identity (if verbalized by the patient): Female Sexual Orientation (if Verbalized by the Patient): Straight or Heterosexual Spiritual care concerns: No Agree to blood products: Yes Exam Narrative: GENERAL: Well-appearing, well-nourished, and in no acute distress. HEAD: Normocephalic, atraumatic. EYES: PERRLA and EOMI. ENT: Nares clear, no rhinorrhea or epistaxis. Mucous membranes moist. Oropharynx without tonsillar hypertrophy exudate or other lesions however there is posterior pharyngeal erythema. Bilateral TMs pearly power nonbulging NECK: Supple. No adenopathy or masses. No carotid bruits or JVD CHEST: Clear to auscultation. No respiratory distress. No wheezes rales or rhonchi HEART: Regular rate and rhythm. No murmur heard. Normal peripheral pulses. ABDOMEN: Soft, nontender, nondistended, normal active bowel sounds. EXTREMITIES: Normal range of motion. No edema. SKIN: Warm, dry, no rash. NEURO: No focal deficits. Alert and oriented x3. PSYCH: Normal mood and affect. Course Course Emergency Course: This is a 59-year-old female who presented for evaluation of sick symptoms. Strep, COVID, influenza were all negative. She declined chest x-ray. I think this is reasonable as she has no adventitious lung sounds. She elected to move forward with antibiotic therapy in the event that her strep was a false negative. She has not responded favorably to Augmentin in the past. Will discharge with azithromycin, which she has responded well to historically. Also discharge with Medrol Dosepak, Tessalon and Zofran. She will follow-up with her primary care provider go to the ER for worsening symptoms. Patient in agreement plan of care. Level of Care: Express Care Visit Vital Signs Vital signs: Vital Signs Temperature 36.0 C L 11/17/24 16:30 Pulse Rate 79 11/17/24 16:30 Respiratory Rate 16 11/17/24 16:30 Blood Pressure 123/86 11/17/24 16:30 Pulse Oximetry 100 11/17/24 16:30 Temperature 36.0 C L 11/17/24 16:30 Pulse Rate 79 11/17/24 16:30 Respiratory Rate 16 11/17/24 16:30 Blood Pressure 123/86 11/17/24 16:30 Pulse Oximetry 100 11/17/24 16:30 Medical Decision Making Vital Signs Vital Signs: Vital Signs Temperature 36.0 C L 11/17/24 16:30 Pulse Rate 79 11/17/24 16:30 Respiratory Rate 16 11/17/24 16:30 Blood Pressure 123/86 11/17/24 16:30 Pulse Oximetry 100 11/17/24 16:30 Temperature 36.0 C L 11/17/24 16:30 Pulse Rate 79 11/17/24 16:30 Respiratory Rate 16 11/17/24 16:30 Blood Pressure 123/86 11/17/24 16:30 Pulse Oximetry 100 11/17/24 16:30 Lab Data Labs: Lab Results 11/17/24 Range/Units 16:24 POC Influenza A Ag Negative (Negative) POC Influenza B Ag Negative (Negative) POC SARS CoV-2 Ag Negative (Negative) POC Grp A Strep Screen Negative (Negative) Discharge Plan Discharge Clinical Impression: Pharyngitis Patient Disposition: Home Condition: Stable Instructions: Antibiotic Form, Pharyngitis (ED) Patient Language: Colombian Prescriptions: New methylprednisolone [Medrol (Alexander)] 4 mg tablets,dose pack See Rx Instructions .ROUTE .COMPLEX Qty: 21 0RF Rx Instructions: for 6 days azithromycin 250 mg tablet See Rx Instructions .ROUTE .COMPLEX Qty: 6 0RF Rx Instructions: For 250 mg dose pack: take 500 mg today (day 1), then 250 mg for 4 days (days 2-5) benzonatate 100 mg capsule 100 mg PO TID PRN (Reason: cough) Qty: 30 0RF ondansetron 4 mg tablet,disintegrating 4 mg PO Q6H PRN (Reason: nausea and vomiting) Qty: 15 0RF No Action albuterol sulfate 90 mcg/actuation HFA aerosol inhaler 2 puff inhalation Q4-6H PRN (Reason: shortness of breath or wheezing) 30 Days Qty: 8.5 0RF albuterol sulfate 2.5 mg /3 mL (0.083 %) solution for nebulization 2.5 mg inhalation Q4-6H PRN (Reason: shortness of breath or wheezing) Qty: 90 0RF albuterol sulfate 90 mcg/actuation HFA aerosol inhaler 2 puff inhalation Q4-6H PRN (Reason: shortness of breath or wheezing) 30 Days Qty: 8.5 0RF immun glob X-ffb-soqw-IgA 0-50 10 gram recon soln 10 gm IVPB WEEKLY cholecalciferol (vitamin D3) [Vitamin D3] 125 mcg (5,000 unit) Tablet 125 mcg PO DAILY hydrocortisone 2.5 % cream 1 applic topical BID PRN (Reason: rash) Qty: 28.35 0RF fluticasone propion-salmeterol [Advair Diskus] 250-50 mcg/dose blister with device 1 inh INHALATION BID Qty: 3 1RF metoprolol succinate 50 mg tablet extended release 24 hr 50 mg PO BID Qty: 180 3RF duloxetine 60 mg capsule,delayed release(DR/EC) 60 mg PO BID Qty: 180 3RF hydroxyzine HCl 25 mg tablet 25 mg PO BID PRN (Reason: itching) Qty: 40 0RF rosuvastatin 5 mg tablet 5 mg PO DAILY Qty: 90 1RF pantoprazole [Protonix] 40 mg tablet,delayed release (DR/EC) 40 mg PO QAM Qty: 90 3RF alprazolam [Xanax] 0.5 mg tablet 0.5 mg PO TID PRN (Reason: anxiety) Qty: 270 0RF lamotrigine 100 mg tablet 100 mg PO DAILY Qty: 90 1RF mupirocin 2 % ointment 1 applic topical BID Qty: 15 0RF alendronate 70 mg tablet 70 mg PO WEEKLY Qty: 12 0RF gabapentin 300 mg capsule 900 mg PO QAM Qty: 270 1RF triamcinolone acetonide 0.1 % cream 1 applic topical BID Qty: 240 0RF Follow-up/Referrals: Daphnie Cristina MD [Primary Care Provider, Family Practice] Time of Disposition: 17:16
== END 2024-11-17 17:20 | disposition home or self-care (01) ==
PROVIDERS: Emergency Provider Nurse Practitioner; PCP Family Medicine
DX: J02.9 Acute pharyngitis, unspecified (principal); E03.9 Hypothyroidism, unspecified; D81.9 Combined immunodeficiency, unspecified; J45.909 Unspecified asthma, uncomplicated; F41.8 Other specified anxiety disorders; I10 Essential (primary) hypertension; Z20.822 Contact with and (suspected) exposure to COVID-19
CPT/HCPCS: 87081; 87426; 87804; 87880; 99213; G0463

== ENCOUNTER 2024-11-25 15:20 | Emergency (ER) | payer OTHER, SELFPAY ==
--- NOTE | 2024-11-25 15:30 | ED.URI ---
HPI - URI/Sore Throat General Chief Complaint: Upper Respiratory Infection Stated Complaint: COUGH/CONGESTION Time Seen by Provider: 11/25/24 15:38 Source: patient and RN notes reviewed Mode of arrival: ambulatory Limitations: no limitations History of Present Illness HPI Narrative: 59-year-old female presents with concern for ongoing cough. She was seen here 6 days ago and treated with azithromycin, steroids and Tessalon Perles. Reports her symptoms for nearly resolved about [facility]p through those medications and then ?came back with a vengeance.? She reports cough is persistent and keeps her awake at night. She denies any new fever, body aches, chills, sweats. She has continued to take Tessalon Perles and vpzn-dxs-arwvqli cold medicine without relief. MD elicited complaint: cough Related Data Home Medications ?Medication ?Instructions ?Recorded ?Confirmed ?Last Taken ?Type immune glob,gamma(IgG) 10 10 gm IV WEEKLY 08/16/19 11/17/24 Unknown History ssgb-dlh-xzlz-IgA 0 to 50 mcg/mL IV solution cholecalciferol (vitamin D3) 125 125 mcg PO DAILY 06/03/20 11/17/24 Unknown History mcg (5,000 unit) tablet (Vitamin D3) Allergies Allergy/AdvReac Type Severity Reaction Status Date / Time oxycodone Allergy Intermediate Hives Verified 11/17/24 16:27 meperidine Allergy Unknown Itching Verified 11/17/24 16:27 Review of Systems Review of Systems: CONSTITUTIONAL: Denies malaise, chills, sweats, or fever. EYES: Denies visual changes, redness, or discharge. ENT: Reports rhinorrhea, congestion. Denies sinus pain, otalgia and sore throat. CARDIOVASCULAR: Denies chest pain, palpitations, or edema. RESPIRATORY: Reports cough with chest discomfort from coughing. Denies dyspnea. GASTROINTESTINAL: Denies abdominal pain, nausea, vomiting, diarrhea SKIN: Denies rash or itching. MUSCULOSKELETAL: Denies myalgia. NEUROLOGIC: Denies headache. All systems reviewed & are unremarkable except as noted in HPI and below PMFSH Past Medical History Medical History Primary immune deficiency disorder Immunodeficiency Spinal stenosis Disorder of intervertebral disc of lumbar spine Hypothyroidism Asthma Irritable bowel syndrome Depression Anxiety Hypertension Surgical History Surgical History History of back surgery H/O lumpectomy Family History Family History Father Hypertension Mother Hypertension Other Diabetes mellitus Family history of arthritis Social History Social History Smoking status: Never smoker Second hand tobacco smoke exposure: No Alcohol intake: never Substance use: never Substance use type: does not use Lack of Transportation: No Lack of Food: Never True Current Housing: I Have Housing Concerned About Future Housing: No Difficulty Paying Gas/Electric Bills: No Difficulty Paying for Meds: No Currently Unemployed: No Education: Bachelor's Degree Difficulty w/ Childcare or Family Care: No Living arrangements: with family Gender identity (if verbalized by the patient): Female Sexual Orientation (if Verbalized by the Patient): Straight or Heterosexual Spiritual care concerns: No Agree to blood products: Yes Comments At time of signature, agree with nursing past medical, surgical, social and family history. There is no relevant family history pertinent to the presenting complaint Exam Narrative: GENERAL: Well-appearing, well-nourished, and in no acute distress. HEAD: Normocephalic EYES: PERRLA, conjunctivae clear ENT: Nares clear. Mucous membranes moist. TM pearly power with sharp light reflex bilaterally; no tragal tenderness. Oropharynx not erythematous without lesions. Tonsils not enlarged and without exudate, no drooling, no hoarseness, no trismus, uvula midline. NECK: Supple. No lymphadenopathy CHEST: Clear to auscultation, breath sounds equal. No wheezing, rhonchi, rales, or stridor. No respiratory distress, speaks in full sentences. Cough noted HEART: Regular rate and rhythm. No murmur heard. SKIN: Warm, dry, no rash. NEURO: Alert and oriented x3. PSYCH: Normal mood and affect Course Course Emergency Course: Patient is aware of diagnosis, understands and agrees to treatment plan. Anticipatory guidance given. Patient agrees to follow-up as directed and is aware of reasons to seek care at the emergency department. Portions of this record may have been created with voice recognition software Level of Care: Express Care Visit Vital Signs Vital signs: Reviewed. MDM - URI/Sore Throat MDM Narrative Medical decision making narrative: Differential diagnosis considered: Llamas virus, strep pharyngitis, allergic rhinitis, upper respiratory tract infection, sinusitis, rhinosinusitis, nasopharyngitis. viral pharyngitis, otitis media, otitis externa, pneumonia, bronchitis, viral cough syndrome, viral syndrome, and influenza. Exam findings show no acute concerns or changes; patient is non-toxic appearing and is in no distress. Patient is appropriate for outpatient treatment and follow-up. Lab Data Attestation: I reviewed the patient's lab results. Critical Care Time Critical Care Time Critical Care Time: No Discharge Plan Discharge Clinical Impression: Cough Patient Disposition: Home Condition: Stable Instructions: Antibiotic Form Additional Instructions: Take medication as prescribed Recommend antihistamine such as Benadryl at night time and Zyrtec or Tiffany during the day Cough syrup may cause drowsiness; avoid driving or take it at night time. Continue to Use your inhaler as needed for cough, wheezing, shortness of breath or chest tightness. Also, recommend symptomatic treatment includes: rest, fluids, and increase humidity of the air at home. Recommend Acetaminophen as directed on the bottle to reduce fever, pain, headache. Avoid smoking/second-hand smoke. Please schedule a follow-up visit with your personal physician for further evaluation and treatment within 3-5days. If your symptoms persist, change or worsen significantly before you can contact your personal physician then please, without delay, go to the emergency department for further evaluation. Please call [phone] for help finding a primary care provider in your area that accepts your insurance. Patient Language: Solomon Islander Prescriptions: New promethazine-DM 6.25-15 mg/5 mL syrup 5 ml PO Q4-6H PRN (Reason: cough) Qty: 120 0RF doxycycline monohydrate 100 mg tablet 100 mg PO BID 7 Days Qty: 14 0RF No Action albuterol sulfate 90 mcg/actuation HFA aerosol inhaler 2 puff inhalation Q4-6H PRN (Reason: shortness of breath or wheezing) 30 Days Qty: 8.5 0RF albuterol sulfate 2.5 mg /3 mL (0.083 %) solution for nebulization 2.5 mg inhalation Q4-6H PRN (Reason: shortness of breath or wheezing) Qty: 90 0RF ondansetron 4 mg tablet,disintegrating 4 mg PO Q6H PRN (Reason: nausea and vomiting) Qty: 15 0RF albuterol sulfate 90 mcg/actuation HFA aerosol inhaler 2 puff inhalation Q4-6H PRN (Reason: shortness of breath or wheezing) 30 Days Qty: 8.5 0RF immun glob Q-pgw-ybai-IgA 0-50 10 gram recon soln 10 gm IVPB WEEKLY cholecalciferol (vitamin D3) [Vitamin D3] 125 mcg (5,000 unit) Tablet 125 mcg PO DAILY hydrocortisone 2.5 % cream 1 applic topical BID PRN (Reason: rash) Qty: 28.35 0RF fluticasone propion-salmeterol [Advair Diskus] 250-50 mcg/dose blister with device 1 inh INHALATION BID Qty: 3 1RF metoprolol succinate 50 mg tablet extended release 24 hr 50 mg PO BID Qty: 180 3RF duloxetine 60 mg capsule,delayed release(DR/EC) 60 mg PO BID Qty: 180 3RF hydroxyzine HCl 25 mg tablet 25 mg PO BID PRN (Reason: itching) Qty: 40 0RF rosuvastatin 5 mg tablet 5 mg PO DAILY Qty: 90 1RF pantoprazole [Protonix] 40 mg tablet,delayed release (DR/EC) 40 mg PO QAM Qty: 90 3RF alprazolam [Xanax] 0.5 mg tablet 0.5 mg PO TID PRN (Reason: anxiety) Qty: 270 0RF lamotrigine 100 mg tablet 100 mg PO DAILY Qty: 90 1RF mupirocin 2 % ointment 1 applic topical BID Qty: 15 0RF gabapentin 300 mg capsule 900 mg PO QAM Qty: 270 1RF triamcinolone acetonide 0.1 % cream 1 applic topical BID Qty: 240 0RF alendronate 70 mg tablet 70 mg PO WEEKLY Qty: 12 0RF Follow-up/Referrals: Daphnie Cristina MD [Primary Care Provider, Family Practice] Time of Disposition: 15:48
[2024-11-25 15:31] VITALS: BP 123/89; PULSE 84; RESP 16; TEMP 36.3; O2SAT 100
== END 2024-11-25 15:57 | disposition home or self-care (01) ==
PROVIDERS: Emergency Provider Nurse Practitioner; PCP Family Medicine
DX: R05.9 Cough, unspecified (principal); I10 Essential (primary) hypertension; D84.9 Immunodeficiency, unspecified; E03.9 Hypothyroidism, unspecified; J45.909 Unspecified asthma, uncomplicated; M48.00 Spinal stenosis, site unspecified; F41.9 Anxiety disorder, unspecified; F32.A Depression, unspecified
CPT/HCPCS: 99213; G0463

== ENCOUNTER 2025-02-27 17:12 | Emergency (ER) | payer OTHER, SELFPAY ==
--- NOTE | 2025-02-27 17:17 | ED_ITS ---
HPI - Eye Problem General Chief complaint: Eye Problems Stated complaint: EYE PAIN/REDNESS/SWELLING Time Seen by Provider: 02/27/25 17:25 Source: patient Mode of arrival: ambulatory Limitations: no limitations History of Present Illness HPI Narrative: Kenyatta is a 59-year-old female patient presenting to the clinic today with complaints of a red, raised, itchy, burning rash around her bilateral eyes with some localized swelling. She reports that this is been going on for the past few days and she has been trying to apply different creams and lotions to the area but it seems to be getting worse. States the area is very painful and sore to touch and feels like her skin is going to peel off or if she rubs it she feels like she is going to bleed. She is also reporting some burning in her mouth that started today. Upon medication review she does take Lamictal. She denies rash anywhere else on her body currently. No fevers, chills, body aches. States she is immunocompromised. Related Data Home Medications ?Medication ?Instructions ?Recorded ?Confirmed ?Last Taken ?Type immune glob,gamma(IgG) 10 10 gm IV WEEKLY 08/16/1907/19 Unknown History jgsi-dso-iliz-IgA 0 to 50 mcg/mL IV solution cholecalciferol (vitamin D3) 125 125 mcg PO DAILY 05/2502/27/25 Unknown History mcg (5,000 unit) tablet (Vitamin D3) Allergies Allergy/AdvReac Type Severity Reaction Status Date / Time oxycodone Allergy Intermediate Hives Verified 02/27/25 17:30 meperidine Allergy Unknown Itching Verified 02/27/25 17:30 Review of Systems Review of Systems: Pertinent positives per HPI. Patient denies any fever, chills, headache, visual changes, dizziness, cough, runny nose, sore throat, shortness of breath, chest pain, palpitations, nausea, vomiting, diarrhea, constipation, abdominal pain, or any urinary issues. [facility] Past Medical History Medical History Primary immune deficiency disorder Immunodeficiency Spinal stenosis Disorder of intervertebral disc of lumbar spine Hypothyroidism Asthma Irritable bowel syndrome Depression Anxiety Hypertension Surgical History Surgical History History of back surgery H/O lumpectomy Family History Family History Father Hypertension Mother Hypertension Other Diabetes mellitus Family history of arthritis Social History Social History Smoking status: Never smoker Second hand tobacco smoke exposure: No Alcohol intake: never Substance use: never Substance use type: does not use Lack of Transportation: No Lack of Food: Never True Current Housing: I Have Housing Concerned About Future Housing: No Difficulty Paying Gas/Electric Bills: No Difficulty Paying for Meds: No Currently Unemployed: No Education: Bachelor's Degree Difficulty w/ Childcare or Family Care: No Living arrangements: with family Gender identity (if verbalized by the patient): Female Sexual Orientation (if Verbalized by the Patient): Straight or Heterosexual Spiritual care concerns: No Agree to blood products: Yes Comments At the time of my signature, I reviewed and agree with the nursing past medical, surgical, social, and family history. There is no relevant family history pertinent to the patient complaint. Exam Narrative: General: Well-developed, well nourished, in no apparent distress Head: Normocephalic, atraumatic Eyes: Pupils equally round and reactive to light bilaterally, EOM intact, sclera and conjunctive clear, no discharge, lids normal Ears: TMs intact and clear, ear canals clear, no drainage, grossly hearing normal. Nose: Nares patent, no discharge, no inflammation, no sinus tenderness. Mouth: Oropharynx without lesions or masses, good dentition, MMM. Neck: Supple, trachea midline, no enlargement of anterior or posterior cervical nodes, no thyroid masses or goiter palpable. Cardio: Regular rate and rhythm, s1 and s2 normal, no murmur appreciated. Resp: Clear to auscultation bilaterally anteriorly and posteriorly, no rhonchi, rales, wheezing or rubs Integumentary: [place], warm, and dry, red, raised, painful, itchy rash around orbits and over the nasal bridge, no lesions or ulcerations noted in the oral mucosa. Course Course Level of Care: Express Care Visit Vital Signs Vital signs: Vital Signs Temperature 36.6 C 02/27/25 17:29 Pulse Rate 84 02/27/25 17:29 Respiratory Rate 16 02/27/25 17:29 Blood Pressure 102/80 02/27/25 17:29 Pulse Oximetry 99 02/27/25 17:29 Temperature 36.6 C 02/27/25 17:29 Pulse Rate 84 02/27/25 17:29 Respiratory Rate 16 02/27/25 17:29 Blood Pressure 102/80 02/27/25 17: Pulse Oximetry 99 02/27/25 17:29 MDM MDM Narrative Medical decision making narrative: At the time of visit patient is resting comfortably on the exam table. Patient appears to be nontoxic. Complaints of a red, raised, itchy, burning rash around her bilateral eyes with some localized swelling. She reports that this is been going on for the past few days and she has been trying to apply different creams and lotions to the area but it seems to be getting worse. States the area is very painful and sore to touch and feels like her skin is going to peel off or if she rubs it she feels like she is going to bleed. She is also reporting some burning in her mouth that started today. Upon medication review she does take Lamictal. She denies rash anywhere else on her body currently. No fevers, chills, body aches. States she is immunocompromised. On exam patient has red, raised, painful, itchy rash around orbits and over the nasal bridge, no lesions or ulcerations noted in the oral mucosa. Lung sounds are clear, heart rates regular rate and rhythm. Plan: Shared decision making performed: Offered to send her to the emergency room for further evaluation-labs and fluids r/o SJS and she declined at this time and would like to try medications for dermatitis as previously discussed. Recommend patient hold dosing of Lamictal tonight and contact her PCP in the morning as she has a red painful rash on her face and she also states that she has burning in her mouth. Concerning for possible Sims-Shimon syndrome. Other differential diagnosis could be dermatitis. Prescription for prednisone and triamcinolone cream was sent to the pharmacy. If her symptoms worsen in any way she should go the emergency room immediately. Be sure to contact her PCP tomorrow to discuss Lamictal/rash as patient will likely need to stop taking this medication and be placed on a different medication for her symptoms. Supportive measures were discussed with the patient and they voiced understanding discharge instructions and agrees to treatment plan. Return precautions reviewed Differential Diagnosis Differential Diagnosis: Differential diagnostic considerations for skin/abscess/foreign body issues include abscess of skin or subcutaneous tissue, viral exanthem, dermatophytosis, urticaria, herpes zoster, allergic reaction to drug, cellulitis, eczema, insect bites, impetigo, contact dermatitis, vasculitis, Richard Shimon syndrome. Discharge Plan Discharge Clinical Impression: Dermatitis Patient Disposition: Home Condition: Stable Instructions: Antibiotic Form, Dermatitis (ED) Additional Instructions: Discussed possible rash that is caused by lamotrigine- Discussed SJS with the patient.if rash worsens recommend discontinue medication and contact her PCP or go to the emergency room as discussed Apply triamcinolone cream as directed Take prednisone as directed Avoid hot showers May apply non scented lotions such is Lubriderm, Aquaphor, or Cetaphil and moisturize skin twice daily Avoid scratching as this can cause a secondary infection May take Benadryl 25-50mg every 6 hours as needed for itching. Follow up with your PCP in 3-5 days if symptoms persist or sooner if they worsen Go to the Emergency Room if symptoms worsen- fever, rash spreading with treatment ,shortness of breath, tongue swelling, drooling, or chest pain Patient Language: [place] African Prescriptions: New prednisone 20 mg tablet 40 mg PO DAILY 5 Days Qty: 10 0RF triamcinolone acetonide 0.1 % cream 1 applic topical BID 7 Days Qty: 30 0RF No Action albuterol sulfate 90 mcg/actuation HFA aerosol inhaler 2 puff inhalation Q4-6H PRN (Reason: shortness of breath or wheezing) 30 Days Qty: 8.5 0RF albuterol sulfate 2.5 mg /3 mL (0.083 %) solution for nebulization 2.5 mg inhalation Q4-6H PRN (Reason: shortness of breath or wheezing) Qty: 90 0RF ondansetron 4 mg tablet,disintegrating 4 mg PO Q6H PRN (Reason: nausea and vomiting) Qty: 15 0RF albuterol sulfate 90 mcg/actuation HFA aerosol inhaler 2 puff inhalation Q4-6H PRN (Reason: shortness of breath or wheezing) 30 Days Qty: 8.5 0RF immun glob I-avv-xzzq-IgA 0-50 10 gram recon soln 10 gm IVPB WEEKLY cholecalciferol (vitamin D3) [Vitamin D3] 125 mcg (5,000 unit) Tablet 125 mcg PO DAILY hydrocortisone 2.5 % cream 1 applic topical BID PRN (Reason: rash) Qty: 28.35 0RF fluticasone propion-salmeterol [Advair Diskus] 250-50 mcg/dose blister with device 1 inh INHALATION BID Qty: 3 1RF duloxetine 60 mg capsule,delayed release(DR/EC) 60 mg PO BID Qty: 180 3RF hydroxyzine HCl 25 mg tablet 25 mg PO BID PRN (Reason: itching) Qty: 40 0RF triamcinolone acetonide 0.1 % cream 1 applic topical BID Qty: 240 0RF alendronate 70 mg tablet 70 mg PO WEEKLY Qty: 12 0RF lamotrigine 100 mg tablet 100 mg PO DAILY Qty: 90 1RF alprazolam [Xanax] 0.5 mg tablet 0.5 mg PO TID PRN (Reason: anxiety) Qty: 270 0RF gabapentin 300 mg capsule 900 mg PO QAM Qty: 270 1RF rosuvastatin 5 mg tablet 5 mg PO DAILY Qty: 90 1RF pantoprazole [Protonix] 40 mg tablet,delayed release (DR/EC) 40 mg PO QAM Qty: 90 3RF metoprolol succinate 50 mg tablet extended release 24 hr See Rx Instructions .ROUTE .COMPLEX Qty: 180 3RF Dose Instruction: TAKE 1 TABLET TWICE A DAY Rx Instructions: TAKE 1 TABLET TWICE A DAY Follow-up/Referrals: UNKNOWN,DOCTOR [Primary Care Provider] Time of Disposition: 17:39 Quality NIHSS Nursing Documentation ED NIHSS nursing documentation: reviewed/agree
[2025-02-27 17:29] VITALS: BP 102/80; PULSE 84; RESP 16; TEMP 36.6; O2SAT 99
== END 2025-02-27 17:54 | disposition home or self-care (01) ==
PROVIDERS: Emergency Provider Nurse Practitioner Family
DX: L30.9 Dermatitis, unspecified (principal); E03.9 Hypothyroidism, unspecified; I10 Essential (primary) hypertension
CPT/HCPCS: 99213; G0463

== ENCOUNTER 2025-03-26 08:19 | Emergency (ER) | payer OTHER, SELFPAY ==
[2025-03-26 08:34] VITALS: BP 126/88; PULSE 99; RESP 16; TEMP 36.4; O2SAT 97
--- NOTE | 2025-03-26 08:46 | ED_ITS ---
HPI - URI/Sore Throat General Chief Complaint: Upper Respiratory Infection Stated Complaint: cough, chest pain Time Seen by Provider: 03/26/25 08:46 Source: patient Mode of arrival: ambulatory Limitations: no limitations History of Present Illness HPI Narrative: 59 yo F with hx of adrenal gland deficiency, asthma presents with c/o cough, fatigue, SOB with exertion for 2 days. Used inhaler last night. exposure to covid. hx of bronchitis multiple times. All systems reviewed and negative except as noted above. Related Data Home Medications ?Medication ?Instructions ?Recorded ?Confirmed ?Last Taken ?Type immune glob,gamma(IgG) 10 10 gm IV WEEKLY 08/16/1907/19 Unknown History egmq-eez-awjr-IgA 0 to 50 mcg/mL IV solution cholecalciferol (vitamin D3) 125 125 mcg PO DAILY 05/2502/27/25 Unknown History mcg (5,000 unit) tablet (Vitamin D3) Allergies Allergy/AdvReac Type Severity Reaction Status Date / Time oxycodone Allergy Intermediate Hives Verified 03/26/25 08:36 meperidine Allergy Unknown Itching Verified 03/26/25 08:36 [facility] Past Medical History Medical History (Updated 03/26/25 @ 09:01 by Heidi Ellis APRN) Well adult exam Sebaceous cyst of left axilla Recurrent major depressive disorder, in remission Non-recurrent acute serous otitis media of right ear Nasal sore Moderate persistent asthma without complication Mass of left axilla Leg paresthesia Hidradenitis suppurativa of left axilla Epidermal inclusion cyst Common variable immunodeficiency Bronchospasm Acute recurrent maxillary sinusitis Acute bronchitis, unspecified Primary immune deficiency disorder Immunodeficiency Spinal stenosis Disorder of intervertebral disc of lumbar spine Hypothyroidism Asthma Irritable bowel syndrome Depression Anxiety Hypertension Surgical History Surgical History History of back surgery H/O lumpectomy Family History Family History Father Hypertension Mother Hypertension Other Diabetes mellitus Family history of arthritis Social History Social History Smoking status: Never smoker Second hand tobacco smoke exposure: No Alcohol intake: never Substance use: never Substance use type: does not use Lack of Transportation: No Lack of Food: Never True Current Housing: I Have Housing Concerned About Future Housing: No Difficulty Paying Gas/Electric Bills: No Difficulty Paying for Meds: No Currently Unemployed: No Education: Bachelor's Degree Difficulty w/ Childcare or Family Care: No Living arrangements: with family Gender identity (if verbalized by the patient): Female Sexual Orientation (if Verbalized by the Patient): Straight or Heterosexual Spiritual care concerns: No Agree to blood products: Yes Comments At time of signature, agree with nursing past medical, surgical, social and family history. There is no relevant family history pertinent to the presenting complaint. Exam Narrative: GENERAL: This is a well-nourished, well-developed patient, ill-appearing but no acute distress HEAD: normocephalic, atraumatic. EYES: PERRL. Sclera clear/white. Vision is grossly intact. EARS: External ears normal, auditory canals clear and without drainage, TMs normal without perforation. Hearing grossly intact. NOSE: External nose normal with no obvious nasal discharge, nares without redness, no rhinorrhea. THROAT: Mucous membranes moist, erythematous. No significant swelling or exudates NECK: Neck supple, non-tender without lymphadenopathy, masses or thyromegaly. CARDIOVASCULAR: Regular rate and rhythm without murmurs, gallops, or rubs. RESPIRATORY: Clear to auscultation. Breath sounds equal bilaterally. No wheezes, rales, or rhonchi. Dry cough noted SKIN: warm, Dry, intact with no suspicious lesions or rash, good texture and turgor. NEURO: awake, alert, and oriented to person, place and time. There were no obvious focal neurologic abnormalities. EXTREMITIES: No joint tenderness, effusion, or edema noted. Course Course Level of Care: Express Care Visit Vital Signs Vital signs: Vital Signs Oxygen Delivery Room Air 03/26/25 08:32 Temperature 36.4 C L 03/26/25 08:34 Pulse Rate 99 03/26/25 08:34 Respiratory Rate 16 03/26/25 08:34 Blood Pressure 126/88 03/26/25 08:34 Pulse Oximetry 97 03/26/25 08:34 Oxygen Delivery Room Air 03/26/25 08:32 reviewed MDM MDM Narrative Medical decision making narrative: Patient positive for COVID. Patient is immunocompromised. recommend paxlovid. No chest pain or shortness of breath at this time. Patient is well-appearing, nontoxic. History of asthma. Does not need prednisone at this time but will prescribe and patient can start laterif she feels that she has having an asthma exacerbation. Differential Diagnosis Differential Diagnosis: Differential diagnostic considerations for upper respiratory infection include upper respiratory infection, croup, otitis media, sinusitis, viral infection, bronchitis, influenza, pharyngitis, strep, uvulitis.? Discharge Plan Discharge Clinical Impression: COVID-19 Patient Disposition: Home Condition: Stable Instructions: COVID-19 (Coronavirus Disease 2019) (ED) Additional Instructions: your COVID test was positive today. COVID is a virus and symptoms may last 10-14 days. Take medications as prescribed. Do not take your reviewed statin while taking Paxlovid. Drink at least 64 oz water a day. See your doctor if not improving. Patient Language: Greenlandic Prescriptions: New Paxlovid 300 mg (150 mg x 2)-100 mg tablets,dose pack See Rx Instructions .ROUTE .COMPLEX Qty: 30 0RF Rx Instructions: take TWO 150 mg tablets of nirmatrelvir with ONE 100 mg tablet of ritonavir twice daily for 5 days benzonatate 200 mg capsule 200 mg PO TID PRN (Reason: cough) Qty: 20 0RF prednisone 20 mg tablet 40 mg PO DAILY 5 Days Qty: 10 0RF No Action albuterol sulfate 90 mcg/actuation HFA aerosol inhaler 2 puff inhalation Q4-6H PRN (Reason: shortness of breath or wheezing) 30 Days Qty: 8.5 0RF albuterol sulfate 2.5 mg /3 mL (0.083 %) solution for nebulization 2.5 mg inhalation Q4-6H PRN (Reason: shortness of breath or wheezing) Qty: 90 0RF ondansetron 4 mg tablet,disintegrating 4 mg PO Q6H PRN (Reason: nausea and vomiting) Qty: 15 0RF albuterol sulfate 90 mcg/actuation HFA aerosol inhaler 2 puff inhalation Q4-6H PRN (Reason: shortness of breath or wheezing) 30 Days Qty: 8.5 0RF triamcinolone acetonide 0.1 % cream 1 applic topical BID 7 Days Qty: 30 0RF immun glob V-djr-ntsi-IgA 0-50 10 gram recon soln 10 gm IVPB WEEKLY cholecalciferol (vitamin D3) [Vitamin D3] 125 mcg (5,000 unit) Tablet 125 mcg PO DAILY hydrocortisone 2.5 % cream 1 applic topical BID PRN (Reason: rash) Qty: 28.35 0RF fluticasone propion-salmeterol [Advair Diskus] 250-50 mcg/dose blister with device 1 inh INHALATION BID Qty: 3 1RF duloxetine 60 mg capsule,delayed release(DR/EC) 60 mg PO BID Qty: 180 3RF hydroxyzine HCl 25 mg tablet 25 mg PO BID PRN (Reason: itching) Qty: 40 0RF triamcinolone acetonide 0.1 % cream 1 applic topical BID Qty: 240 0RF alendronate 70 mg tablet 70 mg PO WEEKLY Qty: 12 0RF lamotrigine 100 mg tablet 100 mg PO DAILY Qty: 90 1RF alprazolam [Xanax] 0.5 mg tablet 0.5 mg PO TID PRN (Reason: anxiety) Qty: 270 0RF gabapentin 300 mg capsule 900 mg PO QAM Qty: 270 1RF rosuvastatin 5 mg tablet 5 mg PO DAILY Qty: 90 1RF pantoprazole [Protonix] 40 mg tablet,delayed release (DR/EC) 40 mg PO QAM Qty: 90 3RF metoprolol succinate 50 mg tablet extended release 24 hr See Rx Instructions .ROUTE .COMPLEX Qty: 180 3RF Dose Instruction: TAKE 1 TABLET TWICE A DAY Rx Instructions: TAKE 1 TABLET TWICE A DAY Follow-up/Referrals: Jonnie,MD Daphnie [Primary Care Provider, Family Practice] Time of Disposition: 09:03
[2025-03-26 10:54] LABS: EDCOVIDSCREEN Positive (Negative); EDINFLUASCREEN Negative (Negative); EDINFLUBSCREEN Negative (Negative); EDSTREPNEGPOS1 Negative (Negative)
== END 2025-03-26 09:06 | disposition home or self-care (01) ==
PROVIDERS: Emergency Provider Nurse Practitioner Family; PCP Family Medicine
DX: U07.1 COVID-19 (principal); E03.9 Hypothyroidism, unspecified; F41.8 Other specified anxiety disorders; I10 Essential (primary) hypertension
CPT/HCPCS: 87081; 87426; 87804; 87880; 99213; G0463